=== PATIENT | female | born 1945 | race Caucasian/White ===

== ENCOUNTER 2017-10-06 19:30 | Inpatient (IN) | payer MEDICARE, BC ==
[2017-10-06] MEDS ORDERED: Nitroglycerin 50 MG/250 ML BOT 250 ML ONE (19:47)
[2017-10-06] MEDS ORDERED: Furosemide 40 MG/4 ML VIAL ONE (19:48)
[2017-10-06 20:44] LABS: #Eosinphils 0.1 thou/uL (0.0-0.7); #Lymphocytes 2.3 thou/uL (1.20-3.40); %Basophils 0.1 % (0.0-1.0); %Eosinophils 0.5 % (0.0-10.0); %Lymphocytes 16.1 % (21.0-51.0); %Neutrophils 76.3 % (42.0-75.0); Hemoglobin 11.3 g/dL (12.0-16.0); Mean Corpuscular HGB CONC 33.3 g/dL (32.0-36.0); Mean Corpuscular Hemoglobin 31.7 pg (27.0-31.0); Mean Corpuscular Volume 95.1 fL (78.0-98.0); Platelet Count 241 thou/uL (130-400); RBC Distribution Width 13.3 % (11.5-14.5); Red Blood Cell (RBC) Count 3.57 mill/uL (4.20-5.40); White Blood Cell (WBC) Count 14.4 thou/uL (4.8-10.8)
[2017-10-06 20:56] LABS: ALT (SGPT) Less than 7 U/L (8-55); AST (SGOT) 15 U/L (5-34); Albumin 3.5 g/dL (3.4-4.8); Alkaline Phosphatase 79 U/L (40-150); Anion Gap 15 mmol/L (10-20); BUN (Urea Nitrogen) 17 mg/dL (9.8-20.1); Bilirubin, Total 0.7 mg/dL (0.2-1.2); CK (CPK) 37 U/L (29-168); Calc. Creatinine Clearance 0 mL/min (70-130); Calcium 8.6 mg/dL (7.8-10.44); Carbon Dioxide 23 mmol/L (23-31); Chloride 103 mmol/L (98-107); Estimated GFR-MDRD 42; Globulin 3.4 g/dL (2.4-3.5); Glucose 184 mg/dL (83-110); Lipase 13 U/L (8-78); Potassium 3.8 mmol/L (3.5-5.1); Protein, Total 6.9 g/dL (6.0-8.3); Sodium 137 mmol/L (136-145)
[2017-10-06 20:59] LABS: CKMB 0.7 ng/mL (0-6.6)
[2017-10-06 21:40] LABS: Bilirubin Negative (Negative); Blood, Urine Trace (Negative); Clarity CLEAR (Clear); Glucose, Urine (Dipstick) Negative (Negative); Leukocyte Trace (Negative); Nitrite Negative (Negative); Protein, Urine (Dipstick) 100 mg/dL (Neg-Trace); Specific Gravity, Urine 1.009 (1.002-1.036)
--- NOTE | 2017-10-06 21:40 | RAD ---
RADIOGRAPH CHEST 1 VIEW: Date: 10/06/17 Time: 8:59 p.m. HISTORY: 72-year-old female with congestive heart failure. COMPARISON: 10/05/17 FINDINGS: Cardiomegaly, bilateral heterogeneously distributed streaky pulmonary densities in the bilateral mid and lower lung zones, and left upper lobe, associated with patchy bilateral mild interstitial densiti es. No pneumothorax. No interval change. IMPRESSION: 1. Cardiomegaly. 2. Bilateral pulmonary densities which could be pulmonary edema, which would suggest congestive heart failure. Alternatively, this could represent bilateral infectious pneumonitis. 3. No interval change since yesterday. OSCAR [] POS: KALIN
[2017-10-06 21:43] LABS: Bacteria/HPF None Seen HPF (None Seen); Hyaline Casts/LPF 0-3 HYALINE CAST LPF (0-3 Hyaline); Pathc Cast-AUWi Flag 0.14 (0-2.49); Squamous Epithelial 0-3 HPF (0-3)
[2017-10-07] MEDS ORDERED: Ondansetron ODT 4 MG TAB SL PRN (00:15)
[2017-10-07] MEDS ORDERED: Acetaminophen 325 MG TAB PO PRN ×2 (00:15→04:14)
[2017-10-07] MEDS ORDERED: Ondansetron HCl/PF 4 MG/2 ML Vial IVP PRN (00:15)
[2017-10-07] MEDS ORDERED: Bisacodyl 5 MG TAB PO PRN (04:14)
[2017-10-07] MEDS ORDERED: Dextrose 5% in Water 1,000 ML IV PRN (04:16)
[2017-10-07] MEDS ORDERED: Dextrose 50% Abboject 50 ML SYRINGE SLOW IVP PRN (04:16)
[2017-10-07] MEDS ORDERED: PROVENTIL INHALER 6.7 G (200 INHALATIONS) INH PRN (04:16)
[2017-10-07] MEDS ORDERED: HumaLOG 300 UNITS/3 ML VIAL SC PRN (04:16)
--- NOTE | 2017-10-07 04:52 | HP ---
PRIMARE CARE PROVIDER: Bradley Beal M.D. CHIEF COMPLAINT: Shortness of breath. HISTORY OF PRESENT ILLNESS: Ms. Jack is a pleasant 72-year-old lady who was seen at [facility] on 10/07/2017. She is followed by Cardiology Service, Dr. Mckinney, as outpatient. She reports that she has been on furosemide 20 mg daily for several years. She denies ever having been diagnosed with congestive hea rt failure. She reports chronic shortness of breath that worsened over the last 4 or 5 days. She reports shortne ss of breath with exertion. She denies any orthopnea or paroxysmal nocturnal dyspnea, reports that s hortness of breath is the same with every body position. She went to [facility] 2 days ago. There, she was told that she had "mild congestiv e heart failure" and advised to double her furosemide dose. She tried that, but continued to have sh ortness of breath. She therefore presented to the emergency room seeking help. She also reports that of late when she is short of breath. She feels chest tightness, but is unable to describe it further. REVIEW OF STYTEMS: All other systems reviewed and found to be negative. PAST MEDICAL HISTORY: Hypertension, dyslipidemia, carotid artery stenosis, coronary artery disease w ith evidence of 3-vessel disease, tobacco abuse and diabetes mellitus type 2. PAST SURGICAL HISTORY: Tubal ligation, hysterectomy, carotid endarterectomy and cardiac catheterizat ion. SOCIAL HISTORY: The patient denies tobacco use, alcohol use or recreational drug use. FAMILY HISTORY: Heart disease in her mother. CODE STATUS: I discussed her code status. She is DNR. ALLERGIES: No known drug allergies. CURRENT MEDICATIONS: Quinapril 40 mg daily, furosemide 20 mg 2 times a day, Singulair 5 mg at bedtim e, gabapentin 300 mg 2 times a day, amlodipine 10 mg daily, Januvia 50 mg daily, Crestor 20 mg at bed time, Ranexa 500 mg tablets, 2 tablets daily, aspirin 162 mg daily. PHYSICAL EXAMINATION: GENERAL: Ms. Jack is awake and alert, not in acute distress. VITAL SIGNS: Blood pressure is 119/74, pulse is 76. She is breathing at rate of 18 and saturating 9 7% on 2 L of oxygen. She is afebrile. EYES: No scleral icterus. No conjunctival pallor. ENT: Moist mucosal membranes, no oropharyngeal erythema or exudates. NECK: Jugular venous distention is present. Neck is supple, nontender, trachea is midline. RESPIRATORY: Accessory muscles of breathing are not active. Chest wall movements are symmetric bila terally. LUNGS: Reveals bibasilar crackles. ABDOMEN: Soft, nontender, bowel sounds heard, no hepatomegaly, no splenomegaly. CARDIOVASCULAR: S1 and S2 are heard, regular. Peripheral pulses palpable. No carotid bruit, no per icardial rub. NEUROLOGIC: Cranial nerves II-XII intact. Deep tendon reflexes are 2+. MUSCULOSKELETAL: Power is 5/5 in all 4 extremities. SKIN: No rashes or subcutaneous nodules. She has bilateral ankle edema. LYMPHATIC: No cervical lymphadenopathy. PSYCHIATRIC: Normal mood, normal affect, patient is oriented to person, place, and time. LABORATORY DATA: 's labs and investigations were reviewed. I reviewed her electrocardiogr am, which shows normal sinus rhythm, no ST changes to suggest an acute coronary syndrome. I also rev iewed her chest x-ray, which shows interstitial edema. She has leukocytosis with 14,400 white cells, of which 76% are neutrophils, normocytic anemia with hemoglobin 11.3, normal platelet count, normal electrolytes, elevated creatinine of 1.25, last known creatinine 1.08 on 10/05/2017, although she had elevated creatinine in the past as well, unremarkable liver profile, normal troponin I and BNP mildl y elevated at 116.6. Urinalysis is positive for protein, blood and trace leukocyte esterase. ASSESSMENT AND PLAN: Ms. Jack is a pleasant 72-year-old lady who was seen at [facility] on 10/07/2017. Her problem list includes: 1. Shortness of breath: Etiology unclear, most likely secondary to congestive heart failure exacerb ation. 2. Congestive heart failure exacerbation: Clinically, she presents as being in congestive heart cris lure exacerbation, although the only mildly elevated BNP as well as a history of lack of orthopnea or paroxysmal nocturnal dyspnea would suggest that alternative possibilities be entertained as well. F or now, patient will be admitted to the hospital and treated with intravenous diuretics. The interst itial edema on chest x-ray could also be pulmonary infiltrates. However, she does not have any fever s. She does have leukocytosis, however. 3. Diabetes mellitus type 2: Start Accu-Cheks, insulin sliding scale. 4. Dyslipidemia: Continue statin. 5. Hypertension: Resume home medications, monitor vital signs, titrate antihypertensives as needed. 6. Chronic kidney disease. Monitor creatinine and electrolytes. Many thanks for allowing me to participate in your patient's care. Please feel free to contact me wi th any questions or concerns. LEVEL OF RISK: High. LEVEL OF COMPLEXITY: High.
[2017-10-07] MEDS: Furosemide 20 MG/2 ML VIAL SLOW IVP SCH ×2 (05:20→17:04)
[2017-10-07] MEDS ORDERED: Alogliptin 6.25 MG TAB PO SCH (09:00)
[2017-10-07] MEDS ORDERED: Mometasone/Formoterol 120 PUFF INHALER INH PRN (09:00)
[2017-10-07] MEDS ORDERED: Aspirin 81 mg Enteric Coated Tablet PO SCH (09:00)
[2017-10-07] MEDS ORDERED: Vit A,C & E/Lutein/Minerals Tablet PO SCH (09:00)
[2017-10-07] MEDS ORDERED: Rosuvastatin 20 MG TAB PO SCH ×2 (09:00→21:00)
[2017-10-07] MEDS ORDERED: Amlodipine 10 MG TAB PO SCH ×2 (09:00→21:00)
[2017-10-07] MEDS ORDERED: Iopamidol 370 76% 100 ML VIAL ONE (09:52)
[2017-10-07] MEDS: Gabapentin 300 MG CAP PO SCH ×2 (10:21→21:01)
[2017-10-07] MEDS: Heparin 5,000 UNITS/ML VIAL SC SCH ×2 (10:49→16:30)
[2017-10-07] MEDS ORDERED: Communication Order-Pharmacy FS SCH ×2 (11:15→17:35)
--- NOTE | 2017-10-07 12:07 | CON ---
DATE OF CONSULTATION: 10/07/2017 INDICATION FOR CONSULTATION: This is a 72-year-old female with known coronary artery disease, hypert ension, diabetes, hypercholesterolemia who underwent cardiac catheterization in [address] Mckinney cathed her in 2013, at which time she was found to have a 60% proximal left anterior descending terrance ry stenosis. She also had 100% right coronary stenosis. The distal right coronary was seen filling by the left anterior descending artery. The left circumflex also has some plaque formation, but no f low limiting or critical stenosis was noted. It was opted to continue medical treatment. She has be en doing very well apparently, has been monitoring her blood pressure and heart rate as well as her d iabetes as well as her cholesterol and has been doing very well. She recently saw him in the office a few months ago and has been doing very well until the last couple of days where she noted she had i ncreasing shortness of breath, dyspnea on exertion, chest tightness with minimal exertion and lower e xtremity edema, more so on the left side than the right side and she presented to the facility for ev aluation and eventually was sent here for further evaluation and treatment and was felt to have some mild congestive heart failure symptoms. However, the BNP is not significantly elevated. She continu es to have some dyspnea when she does minimal exertion. After reviewing the films and discussion with the patient, I feel that most likely she will need to u ndergo a cardiac catheterization for reevaluation of the coronary artery disease. She may now at thi s time have had further progression of her stenosis of the left anterior descending artery causing un stable angina type symptoms. Her EKG is unchanged from 2016. There is no indication of ischemia on the EKG. There is no evidence of myocardial infarction. She has normal cardiac enzymes. Her BNP al so was not significantly elevated, the level was 116.6, not indicative of significant congestive hear t failure. It is of note that her WBC was slightly elevated 14.4 and the chest x-ray indicated ther e was a possibility of either mild congestive heart failure symptoms or the possibility of possible i nfiltrates due to suggestion of possible bilaterally infectious pneumonitis. She has not had any sig nificant coughing. She is afebrile and appears to be comfortable at this time. I have discussed wit h her the indication for the cardiac catheterization as well as the procedure and the risks to includ e bleeding, infection, possibly a myocardial infarction, cerebrovascular accident, renal insufficienc y, allergic contrast reaction and even the possibility of . She understands and agrees to proce ed. We will plan for cardiac catheterization later today as the patient has already had breakfast. As far as her past medical history, social history, review of systems, medications, allergies and phy sical examination, these will be dictated by the nurse practitioner. From my examination, she does have bilateral carotid bruits. She is status post a right carotid enda rterectomy and has a well healed surgical incision. This was performed several years ago. This has remained stable, but she does have bilateral carotid bruits. She has very soft systolic murmur of th e aortic area. Her chest appears to be clear to auscultation without any rales, rhonchi or wheezing today. Extremities show only minimal lower extremity edema involving the left lower extremity. Peda l pulses are present. Cardiovascular exam also revealed a regular rate and rhythm without any other significant murmurs. There were no heaves. Abdominal exam is unremarkable except for some obesity a nd neurologically the patient was fully intact. IMPRESSION: Unstable angina in an elderly female with multiple risk factors for coronary artery dise ase with known coronary disease which most likely has now developed progression of her coronary arter y disease which may now require intervention or possible bypass surgery.
--- NOTE | 2017-10-07 12:22 | CON ---
DATE OF CONSULTATION: 10/07/2017 The patient is a 72-year-old female, pleasant lady presented to [facility] yesterday with shortn ess of breath that had progressed over the last 4-5 days, also some lower extremity swelling, reporte d was worse to the left leg. The patient reports that the shortness of breath is worse with ambulati on and has gotten worse over the last few days. Also reports having this type squeezing chest pain w henever she does get short of breath and it does resolve whenever she does rest. The shortness of br eath has gotten worse even with sitting. She does report a mild cough, but that is not anything new for her as she is a 50 year smoker. She denies any productive cough, fever or chills. The patient d enies any nausea, vomiting with this chest pain, heaviness, does not radiate anywhere. Denies any pa lpitations. All other review of systems are negative, unless as stated in the HPI. PAST MEDICAL HISTORY: Hypertension, dyslipidemia, carotid artery stenosis, coronary artery disease w ith evidence of 3-vessel disease, 50 year smoker, 1 pack a day, although she reports she stopped smok ing about 10 years ago and a history of diabetes. PAST SURGICAL HISTORY: History of tubal ligation, hysterectomy, carotid endarterectomy and a cardiac catheterization. SOCIAL HISTORY: Stopped smoking 10 years ago and denies any alcohol or recreational drug use. ALLERGIES: The patient has no known drug allergies. CURRENT MEDICATIONS: Quinapril 40, furosemide 20 mg 2 times a day, Singulair 5 mg at bedtime, gabape ntin 300 two times a day, amlodipine 10 mg daily, Januvia 50 mg daily, Crestor 20 mg at bedtime, Poncho xa 500 mg 2 times a day and aspirin 162 daily. PHYSICAL EXAMINATION: GENERAL: The patient is awake and alert, in no distress. VITAL SIGNS: Her blood pressure is 159/70, heart rate is 75, respirations 18 even and unlabored. Sh e satting 95% on 2 liters nasal cannula, temperature is 97.9. HEENT: Within normal limits. She is atraumatic. NECK: She does have +2 carotids with mild bilateral bruits. CHEST: Clear to auscultation. She has no rales, rhonchi or wheezing. HEART: Heart rate is regular with a mild aortic area murmur. Peripheral pulses are palpable. She h as no edema at this time. Cranial nerves are intact. MUSCULOSKELETAL: Moves all extremities. SKIN: She has no rashes. There is no JVD. Trachea is midline. RESPIRATORY: No use of accessory muscles. She has a symmetric chest wall movement. LABORATORY VALUES: WBC 14.4, RBCs 3.57. Hemoglobin is 11.3, hematocrit 34.0. Sodium is 137, potass ium 3.8, chloride 103, carbon dioxide is 23, anion gap is 15, BUN 17, creatinine 1.25. Estimated GFR is 42, glucose is 184. Her BNP is 116.6 and have her albumin ratio is 1.0. EKG shows no ST changes and no ischemia. Chest x-ray. Cardiac enzymes are normal. ASSESSMENT AND PLAN: Unstable angina, known coronary artery disease. Will go for catheterization to day, later this afternoon with possible intervention and possible bypass.
[2017-10-07] MEDS ORDERED: Lidocaine 1% (PF) 30 ML VIAL ONE (13:36)
[2017-10-07] MEDS ORDERED: Verapamil 5 MG/2 ML VIAL ONE (14:01)
[2017-10-07] MEDS ORDERED: Heparin 10,000 UNITS/1 ML VIAL ONE (14:01)
[2017-10-07] MEDS ORDERED: Nitroglycerin 100MG/250ML BOT 250 ML ONE (14:01)
[2017-10-07] MEDS ORDERED: Midazolam HCl 2 mg/2 ml Vial ONE (14:23)
[2017-10-07] MEDS ORDERED: Lidocaine 2% PF 100 mg/5 ml Syringe ONE (14:27)
[2017-10-07] MEDS ORDERED: Aminocaproic Acid 5 GM/20 ML VIAL ONE (14:27)
[2017-10-07] MEDS ORDERED: Heparin 30,000 units/30 ml VIAL ONE (14:27)
[2017-10-07] MEDS ORDERED: Mannitol 12.5 GM/50 ML ONE (14:27)
[2017-10-07] MEDS ORDERED: Norepinephrine 4 MG/4 ML VIAL ONE (14:27)
[2017-10-07] MEDS ORDERED: Papaverine 60 MG/2 ML VIAL ONE (14:27)
[2017-10-07] MEDS ORDERED: Protamine Sulfate 250 MG/25 ML VIAL ONE (14:27)
[2017-10-07] MEDS ORDERED: Magnesium 5 GM/10 ML VIAL ONE (14:27)
[2017-10-07] MEDS ORDERED: Calcium Chloride 1 GM/10 ML Abboject SYRINGE ONE (14:27)
[2017-10-07] MEDS ORDERED: Heparin 5,000 UNITS/ML VIAL ONE (14:27)
[2017-10-07] MEDS ORDERED: Cardioplegic Soln 1,000 ML BAG ONE (14:27)
[2017-10-07] MEDS ORDERED: Potassium Chlo 10 mEq/5 ml Syr ONE (14:27)
[2017-10-07] MEDS ORDERED: Sodium Bicarb 50 MEQ/50 ML VIAL ONE (14:27)
[2017-10-07] MEDS ORDERED: Albumin 25% 25 GM/100 ML BOT ONE (14:27)
[2017-10-07] MEDS ORDERED: Acetaminophen/Codeine 30-300mg Tablet PO PRN ×2 (15:55)
[2017-10-07] MEDS ORDERED: traMADol HCl 50 MG TAB PO PRN (15:55)
[2017-10-07] MEDS ORDERED: Nitroglycerin 0.4 MG TAB (25 Tab Bottle) SL PRN (15:55)
[2017-10-07] MEDS ORDERED: Sodium Chloride 0.9% 200 ML IV SCH (15:55)
[2017-10-07] MEDS ORDERED: cloNIDine 0.1 MG TAB PO PRN (16:47)
--- NOTE | 2017-10-07 21:56 | ULT ---
ULTRASOUND DOPPLER DUPLEX CAROTID: 10/07/17 HISTORY: 72-year-old female with atherosclerotic disease of the bilateral carotid arteries. Status post caroti d endarterectomy. TECHNIQUE: Bailey scale, color flow, and spectral analysis, of major arteries of the neck. FINDINGS: There is intimal thickening of the bilateral common carotid arteries. There is mild focal plaque at t he origin of the right internal carotid artery. There is multifocal moderate calcified plaque in the distal left common carotid artery, proximal left internal carotid artery, and proximal left external carotid artery. Highest peak systolic velocities in the internal carotid arteries are 85 cm/s on the right and 190 cm /s on the left. The left internal carotid end diastolic velocity is 30 cm/s. The left external caroti d artery has peak systolic velocity of 280 cm/s. The ICA/CCA ratios are 0.9 on the right and 1.9 on t he left. Vertebral artery flow is antegrade bilaterally. IMPRESSION: 1. Moderate atherosclerotic disease of left common carotid, internal carotid and external caroti d arteries. 2. Estimated moderate, 50-69% stenosis of the proximal left internal carotid artery. 3. High grade stenosis of the proximal left external carotid artery. POS: KALIN
--- NOTE | 2017-10-08 01:09 | CON ---
DATE OF CONSULTATION: 10/07/2017 REQUESTING PHYSICIAN: Mini Peterson M.D. PRIMARY CARE PHYSICIAN: Bradley Beal M.D. CHIEF COMPLAINT: Dyspnea on exertion. HISTORY OF PRESENT ILLNESS: The patient is a 72-year-old diabetic woman with known coronary artery d isease, having undergone cardiac catheterization about 4 years ago. At that time, she had 3-vessel c oronary disease and good LV function and her disease appeared to be modest enough it was opted to pur holly medical management. She has done very well up until the last few days when fairly abruptly she b thad having dyspnea on minimal exertion. She has noticed some swelling in her lower extremities, but has not had any orthopnea or PND. She says that she gets short of breath simply walking across the room and after she starts getting short of breath, she will start developing some chest heaviness. S he presented to the Emergency Room where she had an EKG that was fairly similar to old EKGs. Her tro ponin was 0.010. Her BNP was minimally elevated at 116.6. She underwent cardiac catheterization topauly kearns, which demonstrated progression of disease. PAST MEDICAL HISTORY: Significant for hypertension, diabetes, hyperlipidemia, cerebrovascular diseas e having undergone a right carotid endarterectomy for an asymptomatic carotid stenosis in 2014. She also has mild renal insufficiency with baseline creatinines around the 1.4 range. SOCIAL HISTORY: She is a former smoker. FAMILY HISTORY: Significant for father who at age 72 having heart disease. Her mother had hear t disease, hypertension, and cancer, but lived to age 85. REVIEW OF SYSTEMS: Positive for a deliberate 50-pound weight loss over about the last year or year a nd a half, positive for her dependent edema and recent dyspnea on exertion, negative for orthopnea or PND, negative for any transient eye, speech, facial or extremity symptoms to suggest TIAs, negative for any claudication, negative for any bleeding disorders. PHYSICAL EXAMINATION: GENERAL: She is in no distress. VITAL SIGNS: Height is 5 foot 3. Weight 168 pounds. HEENT: She has no xanthelasma. NECK: No JVD. She has well healed surgical scar paralleling the right sternocleidomastoid consisten t with a carotid endarterectomy. She has bilateral carotid bruits. LUNGS: Her chest is clear to auscultation. CARDIOVASCULAR: She has a regular rate and rhythm. Soft systolic murmur heard over the upper precor dium. She has no gallop. ABDOMEN: Soft and nontender with a well healed surgical scar in the low vertical midline. She has a pressure bandage on her right radial pulse. Her left radial pulse is easily palpable. Both dorsali s pedis pulses are palpable although the right is probably a little stronger than the left. She has no overt edema today. She has no clubbing, cyanosis. NEUROLOGIC: Grossly nonfocal. There have been no significant changes to her home medical regimen of Januvia, Norvasc, quinapril, Ranexa, Crestor, aspirin, Lasix, and p.r.n. Symbicort and Ventolin and scheduled Neurontin. LABORATORY DATA: Showed white count 14.4, hemoglobin 11.3, platelets 241,000. Normal electrolytes. Glucose 184, BUN 17, creatinine 1.25, and estimated GFR of 42. LFTs were normal. Calcium 8.6, prot ein 6.9, albumin 3.5, troponin 0.010. BNP of 116.6. Cardiac catheterization shows codominant system with a small right coronary system with a subtotal ostial stenosis. She has very, very short left m ain, if any at all with a long proximal lesion in the LAD, probably is on the order of 70, perhaps ev en 80%. There is a relatively high diagonal that appears to be free of disease, although some views are somewhat suggestive of ostial disease. There is what probably represents a very high diagonal ru nning in the ramus position and a tiny OM1 followed by an OM2 with a long 70%-80% lesion in it. Ther e is probably some minimal luminal irregularity to the ostium of the circumflex. There does not appe ar to be any disease affecting the terminal circumflex arborization. LVEF is probably around 60% or 70%. Aortic pressures were 184/11 with an EDP of 20, 195/16 with an EDP of 26 and 194/20 with an EDP of 28. Aortic pressure was 184/68 with a mean of 112. IMPRESSION AND RECOMMENDATIONS: Three-vessel coronary disease including proximal disease in a diabet ic who has become dyspneic on exertion with minimal activity. She has asymptomatic carotid disease a nd in reviewing her office records and checking with her guide excursion's office, I am not able to find any evidence that she has had a carotid ultrasound done since about 2014. At that time, her right s alem had markedly progressed over a brief period of follow up, but her left carotid remained stable wi th an internal to common ratio in the 1.5-1.6 range with absolute internal carotid velocities of 159 in 2014 and 134 in 2013. She remains asymptomatic with respect to her carotid disease and if it can be arranged, I would like to check a carotid ultrasound this evening before proceeding with coronary surgery in the morning.
[2017-10-08] MEDS ORDERED: Heparin 10,000 UNITS/1 ML VIAL 30,000 UNITS in Sodium Chloride 0.9% 1,000 ML FS SCH (05:00)
[2017-10-08] MEDS: Furosemide 20 MG/2 ML VIAL SLOW IVP SCH (05:06)
[2017-10-08 05:41] LABS: #Eosinphils 0.2 thou/uL (0.0-0.7); #Lymphocytes 2.2 thou/uL (1.20-3.40); #Monocytes 0.8 thou/uL (0.11-0.59); #Neutrophils 7.1 thou/uL (1.40-6.50); %Basophils 0.3 % (0.0-1.0); %Eosinophils 1.8 % (0.0-10.0); %Lymphocytes 21.6 % (21.0-51.0); %Monocytes 7.8 % (0.0-10.0); %Neutrophils 68.4 % (42.0-75.0); Mean Corpuscular HGB CONC 32.8 g/dL (32.0-36.0); Mean Corpuscular Hemoglobin 31.3 pg (27.0-31.0); Mean Corpuscular Volume 95.4 fL (78.0-98.0); Mean Platelet Volume 6.6 fL (7.4-10.4); Platelet Count 255 thou/uL (130-400); RBC Distribution Width 13.4 % (11.5-14.5); Red Blood Cell (RBC) Count 3.51 mill/uL (4.20-5.40); White Blood Cell (WBC) Count 10.3 thou/uL (4.8-10.8)
[2017-10-08 05:55] LABS: Anion Gap 11 mmol/L (10-20); BUN (Urea Nitrogen) 16 mg/dL (9.8-20.1); Calc. Creatinine Clearance 56 mL/min (70-130); Calcium 8.5 mg/dL (7.8-10.44); Carbon Dioxide 29 mmol/L (23-31); Chloride 101 mmol/L (98-107); Estimated GFR-MDRD 49; Glucose 159 mg/dL (83-110); Potassium 3.1 mmol/L (3.5-5.1); Sodium 138 mmol/L (136-145)
[2017-10-08] MEDS ORDERED: CEFAZOLIN/Water 2 GM/20 ML SYRINGE ONE (06:17)
[2017-10-08] MEDS ORDERED: Albumin 5% 0 ML ONE (06:32)
[2017-10-08] MEDS ORDERED: Fentanyl 250 MCG/5 ML VIAL ONE ×2 (06:53→06:54)
[2017-10-08] MEDS ORDERED: Nitroglycerin 50 MG/250 ML BOT 250 ML IVPB PRN (07:13)
[2017-10-08] MEDS ORDERED: Ondansetron HCl/PF 4 MG/2 ML Vial IVP PRN (07:13)
[2017-10-08] MEDS ORDERED: Bisacodyl 10 MG SUPP PR PRN (07:13)
[2017-10-08] MEDS ORDERED: Guaifenesin DM 100-10/5 ML UDCUP PO PRN (07:13)
[2017-10-08] MEDS ORDERED: Mag-Al 1200 mg/1200 mg/30 ML UDCUP PO PRN (07:13)
[2017-10-08] MEDS ORDERED: Fentanyl 100 MCG/2 ML VIAL SLOW IVP PRN ×2 (07:13)
[2017-10-08] MEDS ORDERED: Acetaminophen 325 MG TAB PO PRN (07:13)
[2017-10-08] MEDS ORDERED: Promethazine HCl 25 MG/ML VIAL IM PRN (07:13)
[2017-10-08] MEDS ORDERED: Hetastarch 6% 500 ML 500 ML IVPB PRN (07:13)
[2017-10-08] MEDS ORDERED: Bisacodyl 5 MG TAB PO PRN (07:13)
[2017-10-08] MEDS ORDERED: Norepinephrine 8 MG/0.9% NS 250 ML IVPB PRN (07:13)
[2017-10-08] MEDS ORDERED: Post-Op Insulin Drip Protocol IVPB ONE (07:13)
[2017-10-08] MEDS ORDERED: hydrALAZINE 20 MG/ML VIAL SLOW IVP PRN (07:13)
[2017-10-08] MEDS ORDERED: Insulin Regular 300 UNITS/3 ML VIAL ONE (08:08)
[2017-10-08] MEDS ORDERED: Dextrose 5% in Water 1,000 ML IV PRN (08:49)
[2017-10-08] MEDS ORDERED: Insulin Regular 300 UNITS/3 ML VIAL SC PRN (08:49)
[2017-10-08] MEDS ORDERED: Dextrose 50% Abboject 50 ML SYRINGE SLOW IVP PRN (08:49)
--- NOTE | 2017-10-08 11:20 | PDOC.PN ---
- Subjective Encounter Start Date: 10/08/17 Encounter Start Time: 09:15 -: old records requested/rev - Objective Resuscitation Status: Resuscitation Status DNR:Do Not Resuscitate MAR Reviewed: Yes Vital Signs & Weight: Vital Signs (12 hours) Temp Pulse Resp BP BP Pulse Ox 10/08/17 04:00 98.6 F 61 20 114/66 93 L 10/08/17 01:26 98.1 F 58 L 20 134/59 L 94 L Weight Admit Weight 168 lb 1.6 oz Weight 171 lb 8 oz Result Diagrams: 10/08/17 04:49 10/08/17 04:49 Additional Labs: Accuchecks 10/08/17 10/08/17 10/08/17 10:03 08:08 05:28 POC Glucose 204 H 193 H 192 H 10/07/17 10/07/17 20:59 11:30 POC Glucose 250 H 228 H Radiology Reviewed by me: Yes (carotid US) EKG Reviewed by me: Yes (nsr) Phys Exam - Physical Examination Constitutional: NAD HEENT: PERRLA, moist MMs, sclera anicteric Neck: no JVD, supple Respiratory: no wheezing, no rales, no rhonchi Cardiovascular: RRR, no significant murmur, no rub Gastrointestinal: soft, non-tender, no distention, positive bowel sounds Musculoskeletal: no edema, pulses present Neurological: non-focal, normal sensation, moves all 4 limbs Psychiatric: normal affect, A&O x 3 Skin: no rash, normal turgor Dx/Plan (1) Hypokalemia Code(s): E87.6 - HYPOKALEMIA Status: Acute (2) Unstable angina Status: Acute (3) 3-vessel coronary artery disease Status: Chronic (4) Anemia, normocytic normochromic Code(s): D64.9 - ANEMIA, UNSPECIFIED Status: Chronic (5) CKD (chronic kidney disease) stage 3, GFR 30-59 ml/min Status: Chronic (6) COPD (chronic obstructive pulmonary disease) Status: Chronic (7) Carotid stenosis, left Code(s): I65.22 - OCCLUSION AND STENOSIS OF LEFT CAROTID ARTERY Status: Chronic (8) DM type 2 (diabetes mellitus, type 2) Status: Chronic (9) HTN (hypertension) Code(s): I10 - ESSENTIAL (PRIMARY) HYPERTENSION Status: Chronic (10) Hyperlipidemia Code(s): E78.5 - HYPERLIPIDEMIA, UNSPECIFIED Status: Chronic (11) Obesity (BMI 30.0-34.9) Code(s): E66.9 - OBESITY, UNSPECIFIED Status: Chronic (12) PVD (peripheral vascular disease) Code(s): I73.9 - PERIPHERAL VASCULAR DISEASE, UNSPECIFIED Status: Chronic - Plan cont current plan of care * plan for CABG today * after CABG, cardiology and cardiovascular surgeon will manage pt in CCU * medication reviewed as below * symptomatic treatment * replace potassium. Review of Systems - Review of Systems Eyes: negative: Pain, Vision Change, Conjunctivae Inflammation, Eyelid Inflammation, Redness, Other ENT: negative: Ear Pain, Ear Discharge, Nose Pain, Nose Discharge, Nose Congestion, Mouth Pain, Mouth Swelling, Throat Pain, Throat Swelling, Other Respiratory: negative: Cough, Dry, Shortness of Breath, Hemoptysis, SOB with Excertion, Pleuritic Pain, Sputum, Wheezing Cardiovascular: negative: chest pain, palpitations, orthopnea, paroxysmal nocturnal dyspnea, edema, light headedness, other Gastrointestinal: negative: Nausea, Vomiting, Abdominal Pain, Diarrhea, Constipation, Melena, Hematochezia, Other Genitourinary: negative: Dysuria, Frequency, Incontinence, Hematuria, Retention , Other Musculoskeletal: negative: Neck Pain, Shoulder Pain, Arm Pain, Back Pain, Hand Pain, Leg Pain, Foot Pain, Other Skin: negative: Rash, Lesions, Esequiel, Bruising, Other - Medications/Allergies Allergies/Adverse Reactions: Allergies Allergy/AdvReac Type Severity Reaction Status Date / Time No Known Allergies Allergy Unverified 06/09/13 07:56 Medications: Current Medications Acetaminophen (Tylenol) 650 mg PO Q6H PRN PRN Reason: Headache/Fever Or Mild Pain Hydrocodone Bitart/Acetaminophen ([place] 5/325) 1 tab PO Q4H PRN PRN Reason: Moderate Pain (4-6) Hydrocodone Bitart/Acetaminophen ([place] 5/325) 2 tab PO Q4H PRN PRN Reason: Severe Pain (7-10) Al Hydroxide/Mg Hydroxide (Maalox) 30 ml PO Q4H PRN PRN Reason: Indigestion Albumin Human (Albumin 5%) 12.5 gm IVPB Q6H PRN PRN Reason: To Maintain SBP> 90 mmHG Stop: 10/09/17 07:14 Albumin Human (Albumin 5%) 25 gm IVPB Q6H PRN PRN Reason: To Maintain SBP > 90 mmHG Stop: 10/09/17 07:14 Albuterol/Ipratropium (Duoneb) 3 ml NEB [id number] PRN PRN Reason: SHORTNESS OF BREATH Bisacodyl (Dulcolax) 10 mg PO Q12H PRN PRN Reason: Constipation Bisacodyl (Dulcolax) 10 mg CA Q12H PRN PRN Reason: Constipation Dextrose/Water (Dextrose 50%) 25 gm SLOW IVP PRN PRN PRN Reason: PER HYPOGLYCEMIC PROTOCOL Famotidine (Pepcid) 20 mg SLOW IVP Q12HR YONATHAN Fentanyl (Sublimaze) 25 mcg SLOW IVP Q2H PRN PRN Reason: Moderate Pain (4-6) Stop: 10/10/17 07:13 Fentanyl (Sublimaze) 50 mcg SLOW IVP Q2H PRN PRN Reason: Severe Pain (7-10) Stop: 10/10/17 07:13 Glucagon (Glucagon) 1 mg SC PRN PRN PRN Reason: PER HYPOGLYCEMIC PROTOCOL Guaifenesin/Dextromethorphan (Robitussin Dm) 15 ml PO Q4H PRN PRN Reason: Cough Hydralazine HCl (Apresoline) 10 mg SLOW IVP Q6H PRN PRN Reason: To Maintain SBP< 140mmHG Hetastarch/Sodium Chloride (Hespan) 500 mls @ 0 mls/hr IVPB PRN PRN; As Directed PRN Reason: To Maintain SBP > 90mmHg Stop: 10/09/17 07:13 Norepinephrine Bitartrate (Levophed) 250 mls @ 0 mls/hr IVPB PRN PRN; Protocol ; Titrate PRN Reason: To maintain SBP > 90 mmHG Nicardipine HCl 25 mg/ Sodium (Chloride) 260 mls @ 0 mls/hr IVPB INF PRN; Protocol; Titrate PRN Reason: To Maintain SBP< 140mmHG Nitroglycerin/Dextrose (Nitroglycerin 50 Mg/250 Ml Bot) 250 mls @ 0 mls/hr IVPB PRN PRN; Protocol; Titrate PRN Reason: To Maintain SBP< 140mmHG Sodium Chloride (Normal Saline 0.9%) 1,000 mls @ 75 mls/hr IV .[id number] YONATHAN Insulin Human Regular 100 (units/ Sodium Chloride) 101 mls @ 0 mls/hr IVPB INF YONATHAN; As Directed PRN Reason: Protocol Dextrose/Water (D5w) 1,000 mls @ 0 mls/hr IV INF PRN; As Directed PRN Reason: PRN HYPOGLYCEMIC PROTOCOL Insulin Glargine (Lantus) 0 units SC ONE PRN PRN Reason: PER OPEN HEART ORDERS Stop: 10/08/17 23:00 Insulin Human Regular (Humulin R) 0 units SC Q4H PRN; Protocol PRN Reason: POST OP SLIDING SCALE Morphine Sulfate (Morphine) 2 mg SLOW IVP Q15MIN PRN PRN Reason: Severe Pain (7-10) Ondansetron HCl (Zofran) 4 mg IVP Q6H PRN PRN Reason: Nausea/Vomiting Potassium Chloride (Kcl) 20 meq IVPB PRN PRN PRN Reason: K level </= 4.0 Promethazine HCl (Phenergan) 6.25 mg IM Q4H PRN PRN Reason: Nausea/Vomiting
[2017-10-08 14:16] LABS: Actual Bicarbonate (HCO3a) 21.8 mEq/L (22-28); Base Excess (BEa) -2.1 mEq/L (-2.0 to +3.0); CO2 Tension 34.2 mmHg (35.0-45.0); O2 Tension (PaO2) 64.8 mmHg (> 70.0); pH, Arterial 7.42 (7.35-7.45)
[2017-10-08 14:17] LABS: Hemoglobin (Hb) 10.7 g/dL (12.0-16.0)
[2017-10-08 14:18] LABS: Puncture Site A-LINE
[2017-10-08] MEDS: Famotidine/PF 20 mg/2ml Vial SLOW IVP SCH ×2 (14:43→22:41)
[2017-10-08] MEDS: Sodium Chloride 0.9% 1,000 ML IV SCH (14:43)
[2017-10-08 14:44] LABS: INR-International Normal Ratio 1.4; PTT 38.9 SEC (22.9-36.1)
--- NOTE | 2017-10-08 14:45 | RAD ---
SINGLE VIEW OF THE CHEST: COMPARISON: 10/06/17. HISTORY: Status post open heart surgery. FINDINGS: A single view of the chest shows an enlarged but stable cardiomediastinal silhouette. The patient is status post sternotomy. An endotracheal tube is seen with its tip between the clavicles. A left cornejo bclavian central venous catheter is seen at the superior vena cava. A mediastinal drain and left reese st tube are present. No pneumothorax is seen. Increased interstitial markings are present. IMPRESSION: Appropriate position of lines and tubes status post sternotomy. POS: [facility]
[2017-10-08 14:58] LABS: Anion Gap 10 mmol/L (10-20); BUN (Urea Nitrogen) 15 mg/dL (9.8-20.1); Calc. Creatinine Clearance 63 mL/min (70-130); Calcium 7.3 mg/dL (7.8-10.44); Carbon Dioxide 24 mmol/L (23-31); Chloride 109 mmol/L (98-107); Estimated GFR-MDRD 56; Glucose 195 mg/dL (83-110); Potassium 3.1 mmol/L (3.5-5.1); Sodium 140 mmol/L (136-145)
[2017-10-08 15:07] LABS: Anisocytosis SLIGHT = 6-15 cells (100X) (0-5/hpf); Band 17 % (5-11); Hemoglobin 10.1 g/dL (12.0-16.0); Lymphocytes 4 % (21-51); MDiff Complete? YES; Mean Corpuscular HGB CONC 32.3 g/dL (32.0-36.0); Mean Corpuscular Volume 96.1 fL (78.0-98.0); Mean Platelet Volume 7.2 fL (7.4-10.4); Metamyelocyte 3 % (0-0); Monocytes 1 % (0-10); Myelocyte 3 % (0-0); Neutrophil 72 % (42-75); PLT Morphology Comment Appears Adequate; Platelet Count 153 thou/uL (130-400); Polychromasia MODERATE = 3-4 cells (100X) (0-2/hpf); RBC Distribution Width 13.1 % (11.5-14.5); Red Blood Cell (RBC) Count 3.26 mill/uL (4.20-5.40); White Blood Cell (WBC) Count 19.4 thou/uL (4.8-10.8)
[2017-10-08] MEDS: Potassium Chloride 20 MEQ/100 ML PREMIX BAG IVPB PRN ×2 (15:27→22:42)
[2017-10-08] MEDS ORDERED: Cardioplegic Soln 1,000 ML BAG ONE (15:49)
[2017-10-08] MEDS ORDERED: Lidocaine 1% PF 5 ML VIAL ONE (15:49)
[2017-10-08] MEDS ORDERED: PROPOFOL 200 MG/20 ML VIAL ONE (15:49)
[2017-10-08] MEDS ORDERED: Vecuronium 10 MG VIAL ONE (15:49)
[2017-10-08] MEDS ORDERED: Heparin 5,000 UNITS/ML VIAL ONE (15:49)
[2017-10-08] MEDS ORDERED: Heparin 30,000 units/30 ml VIAL ONE (15:49)
[2017-10-08] MEDS ORDERED: Norepinephrine 4 MG/4 ML VIAL ONE (15:49)
[2017-10-08] MEDS ORDERED: ePHEDrine/0.9% NaCl/PF SYRINGE 50 mg/10 ml ONE (15:49)
[2017-10-08] MEDS ORDERED: Sodium Bicarb 50 MEQ/50 ML VIAL ONE (15:49)
[2017-10-08] MEDS ORDERED: Papaverine 60 MG/2 ML VIAL ONE (15:49)
--- NOTE | 2017-10-08 17:49 | OP ---
DATE OF PROCEDURE: 10/08/2017 PROCEDURE PERFORMED: Coronary artery bypass grafting x3 with left internal mammary artery to the LAD and reverse greater saphenous vein grafts from the aorta to the second obtuse marginal and to the PD A. PREOPERATIVE DIAGNOSIS: Coronary artery disease. POSTOPERATIVE DIAGNOSIS: Coronary artery disease. SURGEON: Aron Bose MD ACCOUNTS PAYABLE BOOKKEEPER: Dr. Arcos. ANESTHESIA: General endotracheal anesthesia. INDICATIONS: The patient is a 72-year-old diabetic woman with known coronary disease. Over the last several days, she began developing rather debilitating dyspnea on exertion with simply walking acros s the room, she developed shortness of breath followed by chest heaviness or pressure and cardiac cat heterization demonstrated progression of disease including a fairly proximal LAD lesion with preserve d left ventricular systolic function. She is now taken to the operating room for coronary revascular ization. FINDINGS: The pump time 105 minutes, cross clamp time 65 minutes. Good quality ELLEN and saphenous ve in. The LAD was 1 mm vessel that was sclerotic. The second obtuse marginal was a 2 mm good quality vessel. The PDA was about a 1.5 mm sclerotic vessel. The pericardium was closed. NARRATIVE REPORT: After informed consent was obtained, the patient was taken to the operating room a nd placed in supine position on the operating table. After the induction of general anesthesia, the patient's ultrasonographic mapping of the saphenous vein in the left lower extremity was undertaken a nd then the left upper chest was prepped and draped in sterile fashion. [facility], a large bore needle was used to cannulate the left subclavian vein and a guidewire was placed through it by the Seldinger technique. A triple-lumen central line kit was used to place a left subc lavian line. The line passed easily and all three ports easily aspirated and flushed. The line was secured. The patient's torso, groins and lower extremities were prepped and draped in sterile fashio n. The greater saphenous vein was identified medially on the distal left thigh dissected proximally and distally and looped with a vessel loop for traction. It was then endoscopically harvested from t he groin to about a handbreadth below the knee and prepared for use as a graft. The harvest site inc isions were closed in layers of subcutaneous and subcuticular Vicryl. Median sternotomy was performe d. The left pleural space was entered and the left ELLEN was mobilized as a pedicle from the level of xiphoid to the level of the subclavian vein. Side branches were controlled with small Hemoclips. Th e patient was heparinized and the mammary was ligated and divided distally. There was good flow thro ugh the mammary which was then instilled intraluminally with papaverine solution. The mammary bed wa s inspected for hemostasis. The ELLEN retractor was placed at the Burgess retractor. Pericardium was op ened and marsupialized. The aorta was palpated and soft. A double concentric pursestring of #2 Ethi watson was placed in the ascending aorta just beyond the pericardial reflection and a single pursestrin g was placed in the right atrial appendage. Aortic and venous cannula were inserted and secured by t he pursestrings. The plane between the aorta and the pulmonary artery was developed. Cardiopulmonar y bypass was instituted and the patient was systemically cooled. The heart was examined. The vessel s to be bypassed were identified. A longitudinal slit was made in the pericardium anterior to the le ft phrenic nerve through which the mammary pedicle could be passed and a left-sided 36 [place] chest t ube was placed draining the left pleural space and aortic crossclamp was applied and cardioplegia was administered through an aortic root needle. When arrest has been achieved, attention was turned to the circumflex system. The OM2, the more proximal of the large posterolateral marginals was opened a fter palpating plaque in its proximal portion. It was somewhat difficult to adequately sump the terrance riotomy dry. This bleeding from the vessel was controlled by placing a 1.5 mm intracoronary shunt. Reverse greater saphenous vein was anastomosed to that obtuse marginal with running Prolene suture. Over that shunt, the shunt was removed and the suture line secured. The anastomosis was tested by fl ushing cold cardioplegic down the graft. Attention was then turned to the distal right coronary syst em. The proximal PDA was exposed and open saphenous vein was anastomosed end-to-side with running Pr olene. The LAD was then exposed distally. It was a very small vessel and at about the junction of t middle and distal thirds dive intramyocardially. The LAD was opened in the fairly proximal portio n of the distal third, but upon opening it was somewhat difficult though possible to pass a 1 mm prob e 1.5 mm shunt to stent open the vessel during anastomosis could not be passed either proximally or d istally. The Grimes blade and [place] scissors were then used to expose the vessel more proximally where it became a slightly larger caliber vessel, but dive back intramyocardially at a steep angle. The 1.5 mm shunt could be placed there. The mammary was spatulated in the heel of the anastomosis wa s constructed with 1/[address] and then the anastomosis was completed coming around the lef t side of the anastomosis and toe with 1 mm probe in the vessel distally and then completing the terrance riotomy upon releasing the bulldog, Doppler interrogation showed flow in the mammary and in the left anterior descending both proximally and distally from the anastomosis. Mammary pedicle was tacked to the epicardium and the aortic crossclamp was replaced with the partial occluding clamp and aortotomi es were made in the ascending aorta with a scalpel and punch incorporating the root needle site with one was aortotomies. The PDA graft was anastomosed in the more proximal aortotomy in the OM graft to the more distal aortotomy. The partial occluding clamp was removed and the vein grafts were deaired . The bulldogs were removed from them. The anastomoses were inspected for hemostasis and the proxim al anastomoses were marked with small Hemoclips. Posterior pericardial drain was brought out through a separate incision and secured with suture. Right atrial and right ventricular temporary epicardia l pacing wires were placed. The patient was then easily from cardiopulmonary bypass. Aort ic and venous cannulae were removed and the pursestring secured, and protamine was administered. Ble eding from the atrial cannulation site where the atrium was very thin-walled was controlled by overse wing that appendage in two layers using 4-0 Prolene and vein pledgets. When hemostasis was adequate, an anterior mediastinal drain was placed and the pericardium was closed over with running Vicryl. S ternum was reapproximated with #7 stainless steel wires. The fascia was closed over the wires with 0 Vicryl, subcutaneous tissue was irrigated and reapproximated and the skin was closed with Vicryl sub cuticular stitch. The wounds were dressed. The patient taken to the intensive care unit in stable c ondition.
[2017-10-08 20:40] LABS: CO2 Tension 37.2 mmHg (35.0-45.0); pH, Arterial 7.39 (7.35-7.45)
[2017-10-08 20:41] LABS: Actual Bicarbonate (HCO3a) 22.2 mEq/L (22-28); Base Excess (BEa) -2.3 mEq/L (-2.0 to +3.0); O2 Tension (PaO2) 53.7 mmHg (> 70.0)
[2017-10-08 20:42] LABS: Calcium, Ionized 1.1 mmol/L (1.12-1.30); Hematocrit-ABG 31.2 % (36.0-47.0); Hemoglobin (Hb) 10.2 g/dL (12.0-16.0); Puncture Site LINE
[2017-10-08 20:53] LABS: Potassium 3.3 mmol/L (3.5-5.1)
[2017-10-08 22:58] LABS: Actual Bicarbonate (HCO3a) 19.5 mEq/L (22-28); Base Excess (BEa) -4.7 mEq/L (-2.0 to +3.0); Hemoglobin (Hb) 9.7 g/dL (12.0-16.0); O2 Tension (PaO2) 61.4 mmHg (> 70.0); pH, Arterial 7.39 (7.35-7.45)
[2017-10-08 22:59] LABS: Puncture Site ALINE
[2017-10-09 04:59] LABS: #Lymphocytes 1.5 thou/uL (1.20-3.40); #Monocytes 1.2 thou/uL (0.11-0.59); #Neutrophils 15.8 thou/uL (1.40-6.50); %Basophils 0.1 % (0.0-1.0); %Eosinophils 0.1 % (0.0-10.0); %Lymphocytes 8.2 % (21.0-51.0); %Monocytes 6.6 % (0.0-10.0); Hemoglobin 10.4 g/dL (12.0-16.0); Mean Corpuscular HGB CONC 32.5 g/dL (32.0-36.0); Mean Corpuscular Hemoglobin 31.1 pg (27.0-31.0); Mean Corpuscular Volume 95.6 fL (78.0-98.0); Platelet Count 179 thou/uL (130-400); RBC Distribution Width 13.6 % (11.5-14.5); Red Blood Cell (RBC) Count 3.33 mill/uL (4.20-5.40); White Blood Cell (WBC) Count 18.5 thou/uL (4.8-10.8)
[2017-10-09 05:18] LABS: Anion Gap 13 mmol/L (10-20); BUN (Urea Nitrogen) 17 mg/dL (9.8-20.1); Calc. Creatinine Clearance 59 mL/min (70-130); Calcium 8.1 mg/dL (7.8-10.44); Carbon Dioxide 23 mmol/L (23-31); Chloride 109 mmol/L (98-107); Estimated GFR-MDRD 52; Glucose 114 mg/dL (83-110); Potassium 3.7 mmol/L (3.5-5.1); Sodium 141 mmol/L (136-145)
[2017-10-09] MEDS: Potassium Chloride 20 MEQ/100 ML PREMIX BAG IVPB PRN (05:23)
[2017-10-09] MEDS: HYDROcodone/Acetaminophen 5/325 mg Tablet PO PRN ×3 (07:35→21:07)
--- NOTE | 2017-10-09 08:06 | RAD ---
AP VIEW OF THE CHEST: INDICATION: Postop open heart. COMPARISON: Prior exam dated 10/08/17. FINDINGS: Thoracostomy tube is unchanged. The patient has been intervally extubated. Left subclavian central venous catheter is stable. No definite pneumothorax is evident. Areas of subsegmental atelectasis a re again seen within the perihilar region. Cardiomegaly persists. Midline sternotomy changes are st able. CABG clips overlying the heart shadow are stable. IMPRESSION: Interval extubation. No pneumothorax identified. POS: [facility]
[2017-10-09] MEDS ORDERED: Zolpidem Tartrate 5 MG TAB PO PRN (08:19)
[2017-10-09] MEDS ORDERED: Bisacodyl 10 MG SUPP PR PRN (08:19)
[2017-10-09] MEDS ORDERED: Artificial Tears 18 DROP/0.9 ML EA EYE PRN (08:19)
[2017-10-09] MEDS ORDERED: diphenhydrAMINE 25 MG CAP PO PRN (08:19)
[2017-10-09] MEDS ORDERED: Mag-Al 1200 mg/1200 mg/30 ML UDCUP PO PRN (08:19)
[2017-10-09] MEDS ORDERED: Nitroglycerin 0.4 MG TAB (25 Tab Bottle) SL PRN (08:19)
[2017-10-09] MEDS ORDERED: Mineral Oil ENEMA PR PRN (08:19)
[2017-10-09] MEDS ORDERED: Bisacodyl 5 MG TAB PO PRN (08:19)
[2017-10-09] MEDS ORDERED: Guaifenesin DM 100-10/5 ML UDCUP PO PRN (08:19)
--- NOTE | 2017-10-09 08:36 | PDOC.CTH ---
<Shalonda Mead - Last Filed: 10/09/17 08:34> Cardiology Progress Note - Subjective The pt seen and examined. No overnight events. No cardiac complaints. She has been up to chair for 3 hrs this AM. - Objective Vital Signs Temp Pulse Resp BP Pulse Ox 10/09/17 08:00 97.8 F 10/09/17 07:48 77 14 10/09/17 04:00 98.1 F 10/09/17 02:00 80 150/50 H 10/09/17 00:00 98.2 F 93 L 10/08/17 23:00 92 L 10/08/17 22:00 18 10/08/17 21:00 97.8 F Admit Weight 168 lb 1.6 oz Weight 179 lb 0.246 oz 10/08/17 10/09/17 10/10/17 06:59 06:59 06:59 Intake Total 2270.6 60 Output Total 1285 80 Balance 985.6 -20 - Physical Examination General/Neuro: alert & oriented x3 Neck: no JVD present Lungs: other: (Exp. wheezing) Heart: RRR Abdomen: soft Extremities: other: (No edema) - Telemetry Telemetry Rhythm: SR 80s - Labs Result Diagrams: 10/09/17 04:35 10/09/17 04:35 Troponin/CKMB CK-MB (CK-2) 0.7 ng/mL (0-6.6) 10/06/17 20:02 Troponin I 0.010 ng/mL (< 0.028) 10/06/17 20:02 - Assessment/Plan 1. 3V CAD with s/p CABG x3 on 10/08/17 with METZGER-LAD, RGSV-OM2 and PDA; on Statin; start Coreg 3.125mg BID. Will start ASA, Lovenox when the pt is stable 2. HTN - Start Coreg 3.125mg BID; cont. to monitor 3. CKD stage 3 - stable 4. Hyperlipidemia - on Statin 5. DM type 2 - managed by PCP/CV surgeon 6. Anemia - stable 7. Carotid stenosis with hx of Rt CEA in 2014 - cont. to monitor 8. Ex-smoker, quit in 2007 - JUN reviewed Review of Systems - Review of Systems Constitutional: reports: weakness EENTM: reports: no symptoms reported Respiratory: reports: no symptoms reported Cardiac (ROS): reports: no symptoms reported ABD/GI: reports: no symptoms reported : reports: no symptoms reported Musculoskeletal: reports: no symptoms reported Skin: reports: no symptoms reported <Leonardo Peterson - Last Filed: 10/18/17 17:38> Cardiology Progress Note - Objective Admit Weight 168 lb 1.6 oz Weight 183 lb 12.8 oz - Labs Result Diagrams: 10/13/17 04:37 10/14/17 06:42 Troponin/CKMB CK-MB (CK-2) 0.7 ng/mL (0-6.6) 10/06/17 20:02 Troponin I 0.010 ng/mL (< 0.028) 10/06/17 20:02 - Assessment/Plan Pt. was seen and eval. by me. I agree with the A/P by the [employer].Doing well post op. Sitting up in chair.
[2017-10-09] MEDS ORDERED: Dextrose 50% Abboject 50 ML SYRINGE SLOW IVP PRN (08:38)
[2017-10-09] MEDS ORDERED: Dextrose 5% in Water 1,000 ML IV PRN (08:38)
[2017-10-09] MEDS: guaiFENesin ER 600 MG TAB PO SCH ×2 (08:53→21:03)
[2017-10-09] MEDS: Furosemide 40 MG/4 ML VIAL SLOW IVP SCH ×2 (08:54→14:24)
[2017-10-09] MEDS: Famotidine 20 MG TAB PO SCH ×2 (08:54→21:03)
[2017-10-09] MEDS ORDERED: Carvedilol 3.125 MG TAB PO SCH (09:00)
[2017-10-09] MEDS ORDERED: Gabapentin 300 MG CAP PO SCH (11:15)
--- NOTE | 2017-10-09 11:15 | PDOC.PN ---
- Subjective Encounter Start Date: 10/09/17 Encounter Start Time: 10:00 Patient seen and examined. No new complaints. No overnight events s/p CABG X 3 she sat in chair, she had BM, doing well - Objective Resuscitation Status: Resuscitation Status DNR:Do Not Resuscitate MAR Reviewed: Yes Vital Signs & Weight: Vital Signs (12 hours) Temp Pulse Resp BP Pulse Ox 10/09/17 08:00 97.8 F 85 16 98 10/09/17 07:48 77 14 10/09/17 04:00 98.1 F 10/09/17 02:00 80 150/50 H 10/09/17 00:00 98.2 F 93 L Weight Admit Weight 168 lb 1.6 oz Weight 179 lb 0.246 oz Most Recent Monitor Data Heart Rate from ECG 79 NIBP 135/49 NIBP BP-Mean 98 Respiration from ECG 24 SpO2 96 I&O: 10/08/17 10/09/17 10/10/17 06:59 06:59 06:59 Intake Total 2270.6 180 Output Total 1285 220 Balance 985.6 -40 Result Diagrams: 10/09/17 04:35 10/09/17 04:35 Additional Labs: Accuchecks 10/09/17 10/09/17 10/09/17 06:18 05:29 04:26 POC Glucose 113 H 114 H 113 H 10/09/17 10/09/17 10/09/17 03:20 02:16 01:37 POC Glucose 112 H 134 H 126 H 10/09/17 10/08/17 10/08/17 00:40 23:33 22:36 POC Glucose 142 H 155 H 148 H 10/08/17 10/08/17 10/08/17 21:08 19:55 19:06 POC Glucose 103 119 H 114 H 10/08/17 10/08/17 10/08/17 17:49 16:48 15:46 POC Glucose 113 H 153 H 190 H 10/08/17 10/08/17 10/08/17 14:09 13:31 12:51 POC Glucose 210 H 152 H 151 H 10/08/17 10/08/17 10/08/17 12:06 11:35 11:10 POC Glucose 181 H 208 H 207 H Radiology Reviewed by me: Yes (chest xray) EKG Reviewed by me: Yes (nsr) Phys Exam - Physical Examination Constitutional: NAD HEENT: PERRLA, moist MMs, sclera anicteric Neck: no JVD, supple Respiratory: no wheezing, no rales, no rhonchi chest tube+ Cardiovascular: RRR, no significant murmur, no rub Gastrointestinal: soft, non-tender, no distention, positive bowel sounds Musculoskeletal: no edema, pulses present Neurological: non-focal, normal sensation, moves all 4 limbs Lymphatic: no nodes Psychiatric: normal affect, A&O x 3 Skin: no rash, normal turgor Dx/Plan (1) Unstable angina Status: Acute (2) 3-vessel coronary artery disease Status: Chronic (3) S/P CABG x 3 Code(s): Z95.1 - PRESENCE OF AORTOCORONARY BYPASS GRAFT Status: Acute (4) Hypokalemia Code(s): E87.6 - HYPOKALEMIA Status: Resolved (5) Anemia, normocytic normochromic Code(s): D64.9 - ANEMIA, UNSPECIFIED Status: Chronic (6) CKD (chronic kidney disease) stage 3, GFR 30-59 ml/min Status: Chronic (7) COPD (chronic obstructive pulmonary disease) Status: Chronic (8) Carotid stenosis, left Code(s): I65.22 - OCCLUSION AND STENOSIS OF LEFT CAROTID ARTERY Status: Chronic (9) DM type 2 (diabetes mellitus, type 2) Status: Chronic (10) HTN (hypertension) Code(s): I10 - ESSENTIAL (PRIMARY) HYPERTENSION Status: Chronic (11) Hyperlipidemia Code(s): E78.5 - HYPERLIPIDEMIA, UNSPECIFIED Status: Chronic (12) Obesity (BMI 30.0-34.9) Code(s): E66.9 - OBESITY, UNSPECIFIED Status: Chronic (13) PVD (peripheral vascular disease) Code(s): I73.9 - PERIPHERAL VASCULAR DISEASE, UNSPECIFIED Status: Chronic - Plan cont current plan of care * medication reviewed as below * symptomatic treatment * restart her gabapentin * doing well * continue post CABG care as per surgeon and cardiology. * pt prefers to go to rehab on discharge if her insurance approves Review of Systems - Review of Systems Eyes: negative: Pain, Vision Change, Conjunctivae Inflammation, Eyelid Inflammation, Redness, Other ENT: negative: Ear Pain, Ear Discharge, Nose Pain, Nose Discharge, Nose Congestion, Mouth Pain, Mouth Swelling, Throat Pain, Throat Swelling, Other Respiratory: negative: Cough, Dry, Shortness of Breath, Hemoptysis, SOB with Excertion, Pleuritic Pain, Sputum, Wheezing Cardiovascular: negative: chest pain, palpitations, orthopnea, paroxysmal nocturnal dyspnea, edema, light headedness, other Gastrointestinal: negative: Nausea, Vomiting, Abdominal Pain, Diarrhea, Constipation, Melena, Hematochezia, Other Genitourinary: negative: Dysuria, Frequency, Incontinence, Hematuria, Retention , Other Musculoskeletal: negative: Neck Pain, Shoulder Pain, Arm Pain, Back Pain, Hand Pain, Leg Pain, Foot Pain, Other Skin: negative: Rash, Lesions, Esequiel, Bruising, Other - Medications/Allergies Allergies/Adverse Reactions: Allergies Allergy/AdvReac Type Severity Reaction Status Date / Time No Known Allergies Allergy Unverified 06/09/13 07:56 Medications: Current Medications Hydrocodone Bitart/Acetaminophen ([place] 5/325) 1 tab PO Q4H PRN PRN Reason: Moderate Pain (4-6) Hydrocodone Bitart/Acetaminophen ([place] 5/325) 2 tab PO Q4H PRN PRN Reason: Severe Pain (7-10) Last Admin: 10/09/17 07:35 Dose: 2 tab Al Hydroxide/Mg Hydroxide (Maalox) 30 ml PO Q4H PRN PRN Reason: Indigestion Albuterol/Ipratropium (Duoneb) 3 ml NEB [id number] PRN PRN Reason: SHORTNESS OF BREATH Last Admin: 10/09/17 07:48 Dose: 3 ml Artificial Tears (Tears Naturale) 1 drop EA EYE PRN PRN PRN Reason: Dry Eyes Bisacodyl (Dulcolax) 10 mg PO Q12H PRN PRN Reason: Constipation Bisacodyl (Dulcolax) 10 mg MA Q12H PRN PRN Reason: Constipation Carvedilol (Coreg) 3.125 mg PO BID-[facility] Dextrose/Water (Dextrose 50%) 25 gm SLOW IVP PRN PRN PRN Reason: PER HYPOGLYCEMIC PROTOCOL Diphenhydramine HCl (Benadryl) 25 mg PO Q6H PRN PRN Reason: Itching & Insomnia or David Osman Famotidine (Pepcid) 20 mg PO Q12HR [facility] Last Admin: 10/09/17 08:54 Dose: 20 mg Furosemide (Lasix) 40 mg SLOW IVP 0800,1400 [facility] Stop: 10/09/17 14:01 Last Admin: 10/09/17 08:54 Dose: 40 mg Gabapentin (Neurontin) 300 mg PO BID YONATHAN Gabapentin (Neurontin) 300 mg PO NOW YONATHAN Stop: 10/09/17 13:00 Glucagon (Glucagon) 1 mg SC PRN PRN PRN Reason: PER HYPOGLYCEMIC PROTOCOL Guaifenesin (Mucinex) 1,200 mg PO Q12HR [facility] Last Admin: 10/09/17 08:53 Dose: 1,200 mg Guaifenesin/Dextromethorphan (Robitussin Dm) 15 ml PO Q4H PRN PRN Reason: Cough Dextrose/Water (D5w) 1,000 mls @ 0 mls/hr IV INF PRN; As Directed PRN Reason: PRN HYPOGLYCEMIC PROTOCOL Insulin Glargine (Lantus) 0 units SC ONE PRN PRN Reason: PER OPEN HEART ORDERS Stop: 10/09/17 23:00 Insulin Human Regular (Humulin R) 0 units SC Q4H PRN; Protocol PRN Reason: POST OP SLIDING SCALE Mineral Oil (Fleet Mineral Oil) 133 ml MA DAILYPRN PRN PRN Reason: Constipation Nitroglycerin (Nitrostat) 0.4 mg SL Q5MIN PRN PRN Reason: Chest Pain Ondansetron HCl (Zofran) 4 mg IVP Q6H PRN PRN Reason: Nausea/Vomiting Last Admin: 10/09/17 10:16 Dose: 4 mg Rosuvastatin Calcium (Crestor) 20 mg PO HS [facility] Sodium Chloride (Flush - Normal Saline) 10 ml IVF Q12HR [facility] Last Admin: 10/09/17 10:29 Dose: 10 ml Zolpidem Tartrate (Ambien) 5 mg PO HSPRN PRN PRN Reason: Insomnia
[2017-10-09] MEDS: Carvedilol 3.125 MG TAB PO SCH (16:16)
[2017-10-09] MEDS: Insulin Regular 300 UNITS/3 ML VIAL SC PRN (16:38)
[2017-10-09] MEDS: Rosuvastatin 20 MG TAB PO SCH (21:03)
[2017-10-09] MEDS: Gabapentin 300 MG CAP PO SCH (21:03)
[2017-10-10] MEDS: HYDROcodone/Acetaminophen 5/325 mg Tablet PO PRN (03:15)
[2017-10-10 05:13] LABS: #Lymphocytes 2.6 thou/uL (1.20-3.40); #Monocytes 1.6 thou/uL (0.11-0.59); #Neutrophils 14.9 thou/uL (1.40-6.50); %Basophils 0.1 % (0.0-1.0); %Eosinophils 0.3 % (0.0-10.0); %Lymphocytes 13.7 % (21.0-51.0); %Monocytes 8.3 % (0.0-10.0); %Neutrophils 77.7 % (42.0-75.0); Hemoglobin 9.3 g/dL (12.0-16.0); Mean Corpuscular HGB CONC 32.7 g/dL (32.0-36.0); Mean Corpuscular Hemoglobin 31.3 pg (27.0-31.0); Mean Corpuscular Volume 95.9 fL (78.0-98.0); Mean Platelet Volume 7.6 fL (7.4-10.4); Platelet Count 184 thou/uL (130-400); RBC Distribution Width 13.5 % (11.5-14.5); Red Blood Cell (RBC) Count 2.97 mill/uL (4.20-5.40); White Blood Cell (WBC) Count 19.2 thou/uL (4.8-10.8)
[2017-10-10 05:24] LABS: Anion Gap 12 mmol/L (10-20); BUN (Urea Nitrogen) 27 mg/dL (9.8-20.1); Calc. Creatinine Clearance 43 mL/min (70-130); Calcium 8.3 mg/dL (7.8-10.44); Carbon Dioxide 22 mmol/L (23-31); Chloride 105 mmol/L (98-107); Estimated GFR-MDRD 34; Glucose 211 mg/dL (83-110); Potassium 4.8 mmol/L (3.5-5.1); Sodium 134 mmol/L (136-145)
--- NOTE | 2017-10-10 07:40 | RAD ---
PORTABLE CHEST: Date: 10/10/17 INDICATION: Postop sternotomy follow-up. COMPARISON: 10/09/17. FINDINGS/IMPRESSION: Chest drainage catheter is again noted. Bibasilar infiltrates and/or atelectasis with hazy infiltrate in the left mid lung. Streaky atelectasis in the right mid lung. Heart is mildly enlarged with posto p sternotomy change. Central line is unchanged with tip overlying the SVC. The chest findings have not significantly changed from yesterday. POS: [facility]
[2017-10-10] MEDS: Sodium Chloride 0.9% 1,000 ML IV SCH (08:00)
[2017-10-10] MEDS: Famotidine 20 MG TAB PO SCH ×2 (08:03→20:43)
[2017-10-10] MEDS: Gabapentin 300 MG CAP PO SCH ×2 (08:03→20:43)
[2017-10-10] MEDS: guaiFENesin ER 600 MG TAB PO SCH ×2 (08:03→20:43)
[2017-10-10] MEDS: Insulin Regular 300 UNITS/3 ML VIAL SC PRN ×3 (08:04→19:11)
[2017-10-10] MEDS: Carvedilol 3.125 MG TAB PO SCH ×2 (08:04→16:28)
[2017-10-10] MEDS: Alogliptin 6.25 MG TAB PO SCH (09:58)
[2017-10-10] MEDS: cefTRIAXone\\ROCEPHIN 1 GM in Sodium Chloride 0.9% 100 ML IVPB SCH (09:59)
[2017-10-10 10:24] LABS: Bilirubin Small (Negative); Blood, Urine Negative (Negative); Clarity CLOUDY (Clear); Glucose, Urine (Dipstick) Negative (Negative); Leukocyte Small (Negative); Nitrite Negative (Negative); Protein, Urine (Dipstick) 30 mg/dL (Neg-Trace); Specific Gravity, Urine 1.024 (1.002-1.036)
[2017-10-10 10:27] LABS: Bacteria/HPF None Seen HPF (None Seen)
[2017-10-10 10:29] LABS: Pathc Cast-AUWi Flag 8.86 (0-2.49)
[2017-10-10 10:50] LABS: Transitional Epithelial 0-3 HPF (0-3)
--- NOTE | 2017-10-10 14:00 | PDOC.PN ---
- Subjective Encounter Start Date: 10/10/17 Encounter Start Time: 13:55 Subjective: feels tired and sleepy.some phlegmn.no SOB/CP -: no dysuria/no AP/N/V/D - Objective Resuscitation Status: Resuscitation Status FULL:Full Resuscitation MAR Reviewed: Yes Vital Signs & Weight: Vital Signs (12 hours) Temp Pulse Pulse Pulse Resp BP BP 10/10/17 11:49 98 F 72 18 10/10/17 11:43 77 63 157/67 H 155/91 H 10/10/17 08:36 63 72 160/68 H 139/67 10/10/17 07:15 98.3 F 70 18 10/10/17 07:14 98.3 F 70 18 10/10/17 04:15 10/10/17 04:00 98.7 F 74 16 BP Pulse Ox Pulse Ox Pulse Ox 10/10/17 11:49 155/91 H 94 L 10/10/17 11:43 87 L 94 L 10/10/17 08:36 91 L 91 L 10/10/17 07:15 91 L 10/10/17 07:14 126/62 91 L 10/10/17 04:15 95 10/10/17 04:00 132/59 L 90 L Weight Admit Weight 168 lb 1.6 oz Weight 184 lb 3.2 oz Most Recent Monitor Data Heart Rate from ECG 70 NIBP 126/50 NIBP BP-Mean 62 Respiration from ECG 29 SpO2 94 I&O: 10/09/17 10/10/17 10/11/17 06:59 06:59 06:59 Intake Total 2270.6 480 Output Total 1285 655 Balance 985.6 -175 Result Diagrams: 10/10/17 04:49 10/10/17 04:49 Additional Labs: Accuchecks 10/10/17 10/10/17 10:47 05:45 POC Glucose 191 H 239 H Microbiology 09/29/17 16:00 Urine voided Urine Culture - Final Escherichia coli Laboratory Tests 10/06/17 10/08/17 10/08/17 20:02 04:49 14:33 Creatinine 1.25 H 1.10 0.98 10/09/17 10/10/17 04:35 04:49 Creatinine 1.04 1.51 H labs reviewed Radiology Reviewed by me: Yes (CXR- left middle lobe infiltrate) Phys Exam - Physical Examination Constitutional: NAD sleepy and tired looking HEENT: PERRLA, moist MMs, sclera anicteric, oral pharynx no lesions Neck: no nodes, no JVD, supple, full ROM Respiratory: no wheezing, no rales, no rhonchi Cardiovascular: RRR, no significant murmur surgical scar well healing Gastrointestinal: soft, non-tender, no distention, positive bowel sounds Musculoskeletal: no edema, pulses present Neurological: non-focal, normal sensation, moves all 4 limbs Psychiatric: normal affect, A&O x 3 Skin: no rash Dx/Plan (1) Unstable angina Status: Acute (2) NEGRA (acute kidney injury) Code(s): N17.9 - ACUTE KIDNEY FAILURE, UNSPECIFIED Status: Acute (3) S/P CABG x 3 Code(s): Z95.1 - PRESENCE OF AORTOCORONARY BYPASS GRAFT Status: Acute (4) 3-vessel coronary artery disease Status: Chronic (5) Anemia, normocytic normochromic Code(s): D64.9 - ANEMIA, UNSPECIFIED Status: Chronic (6) CKD (chronic kidney disease) stage 3, GFR 30-59 ml/min Status: Chronic (7) COPD (chronic obstructive pulmonary disease) Status: Chronic (8) Carotid stenosis, left Code(s): I65.22 - OCCLUSION AND STENOSIS OF LEFT CAROTID ARTERY Status: Chronic (9) DM type 2 (diabetes mellitus, type 2) Status: Chronic (10) HTN (hypertension) Code(s): I10 - ESSENTIAL (PRIMARY) HYPERTENSION Status: Chronic (11) Hyperlipidemia Code(s): E78.5 - HYPERLIPIDEMIA, UNSPECIFIED Status: Chronic (12) Obesity (BMI 30.0-34.9) Code(s): E66.9 - OBESITY, UNSPECIFIED Status: Chronic (13) PVD (peripheral vascular disease) Code(s): I73.9 - PERIPHERAL VASCULAR DISEASE, UNSPECIFIED Status: Chronic - Plan PT/OT, out of bed/ambulate, DVT proph w/SCDs Cr slightly higher today.likley due to lasix given yesterday.monitor -: Start ASA.Cont Coreg,statin. -: avoid KAYLYN-I/ARB for now given NEGRA.start when Cr imprves -: add empiric ABx for Possible Left PNA. -: recheck UA looks contaminated. * .am labs. * Rehab eval. * ambulate more Review of Systems - Review of Systems Constitutional: weakness, malaise. negative: fever, chills, sweats, other Respiratory: Cough, Sputum. negative: Dry, Shortness of Breath, Hemoptysis, SOB with Excertion, Pleuritic Pain, Wheezing Cardiovascular: negative: chest pain, palpitations, orthopnea, paroxysmal nocturnal dyspnea, edema, light headedness, other Gastrointestinal: negative: Nausea, Vomiting, Abdominal Pain, Diarrhea, Constipation, Melena, Hematochezia, Other Genitourinary: negative: Dysuria, Frequency, Incontinence, Hematuria, Retention , Other Skin: negative: Rash, Lesions, Esequiel, Bruising, Other Neurological: negative: Weakness, Numbness, Incoordination, Change in Speech, Confusion, Seizures, Other - Medications/Allergies Allergies/Adverse Reactions: Allergies Allergy/AdvReac Type Severity Reaction Status Date / Time No Known Allergies Allergy Unverified 06/09/13 07:56 Medications: Current Medications Hydrocodone Bitart/Acetaminophen ([place] 5/325) 1 tab PO Q4H PRN PRN Reason: Moderate Pain (4-6) Hydrocodone Bitart/Acetaminophen ([place] 5/325) 2 tab PO Q4H PRN PRN Reason: Severe Pain (7-10) Last Admin: 10/10/17 03:15 Dose: 2 tab Al Hydroxide/Mg Hydroxide (Maalox) 30 ml PO Q4H PRN PRN Reason: Indigestion Albuterol/Ipratropium (Duoneb) 3 ml NEB [id number] PRN PRN Reason: SHORTNESS OF BREATH Last Admin: 10/09/17 07:48 Dose: 3 ml Alogliptin Benzoate (Alogliptin) 12.5 mg PO DAILY [facility] Last Admin: 10/10/17 09:58 Dose: 12.5 mg Artificial Tears (Tears Naturale) 1 drop EA EYE PRN PRN PRN Reason: Dry Eyes Bisacodyl (Dulcolax) 10 mg PO Q12H PRN PRN Reason: Constipation Bisacodyl (Dulcolax) 10 mg [place] Q12H PRN PRN Reason: Constipation Carvedilol (Coreg) 3.125 mg PO BID-[facility] Last Admin: 10/10/17 08:04 Dose: 3.125 mg Dextrose/Water (Dextrose 50%) 25 gm SLOW IVP PRN PRN PRN Reason: PER HYPOGLYCEMIC PROTOCOL Diphenhydramine HCl (Benadryl) 25 mg PO Q6H PRN PRN Reason: Itching & Insomnia or David Osman Famotidine (Pepcid) 20 mg PO Q12HR [facility] Last Admin: 10/10/17 08:03 Dose: Not Given Gabapentin (Neurontin) 300 mg PO BID [facility] Last Admin: 10/10/17 08:03 Dose: 300 mg Glucagon (Glucagon) 1 mg SC PRN PRN PRN Reason: PER HYPOGLYCEMIC PROTOCOL Guaifenesin (Mucinex) 1,200 mg PO Q12HR [facility] Last Admin: 10/10/17 08:03 Dose: 1,200 mg Guaifenesin/Dextromethorphan (Robitussin Dm) 15 ml PO Q4H PRN PRN Reason: Cough Dextrose/Water (D5w) 1,000 mls @ 0 mls/hr IV INF PRN; As Directed PRN Reason: PRN HYPOGLYCEMIC PROTOCOL Ceftriaxone Sodium 1 gm/ (Sodium Chloride) 100 mls @ 200 mls/hr IVPB 0900 [facility] Last Admin: 10/10/17 09:59 Dose: 100 mls Insulin Human Regular (Humulin R) 0 units SC Q4H PRN; Protocol PRN Reason: POST OP SLIDING SCALE Last Admin: 10/10/17 11:45 Dose: 4 unit Mineral Oil (Fleet Mineral Oil) 133 ml [place] DAILYPRN PRN PRN Reason: Constipation Nitroglycerin (Nitrostat) 0.4 mg SL Q5MIN PRN PRN Reason: Chest Pain Ondansetron HCl (Zofran) 4 mg IVP Q6H PRN PRN Reason: Nausea/Vomiting Last Admin: 10/09/17 10:16 Dose: 4 mg Rosuvastatin Calcium (Crestor) 20 mg PO HS [facility] Last Admin: 10/09/17 21:03 Dose: 20 mg Sodium Chloride (Flush - Normal Saline) 10 ml IVF Q12HR [facility] Last Admin: 10/10/17 08:04 Dose: 10 ml Zolpidem Tartrate (Ambien) 5 mg PO HSPRN PRN PRN Reason: Insomnia
--- NOTE | 2017-10-10 15:36 | EKG ---
Test Reason : SOB/CHF Blood Pressure : / mmHG Vent. Rate : 078 BPM Atrial Rate : 078 BPM P-R Int : 160 ms QRS Dur : 076 ms QT Int : 404 ms P-R-T Axes : 038 098 076 degrees QTc Int : 460 ms Normal sinus rhythm Rightward axis Septal infarct , age undetermined Abnormal ECG Confirmed by ISABELLA ROLDAN M.D. ([id number]), assignment desk editor DEACON RICHMOND ([id number]) on 10/10/2017 3:36:12 PM Referred By: Confirmed By:ISABELLA ROLDAN M.D.
[2017-10-10] MEDS: Rosuvastatin 20 MG TAB PO SCH (20:43)
[2017-10-11] MEDS: HYDROcodone/Acetaminophen 5/325 mg Tablet PO PRN ×2 (02:54→20:07)
[2017-10-11 05:12] LABS: #Eosinphils 0.1 thou/uL (0.0-0.7); #Lymphocytes 2.3 thou/uL (1.20-3.40); #Monocytes 1.1 thou/uL (0.11-0.59); #Neutrophils 14.2 thou/uL (1.40-6.50); %Basophils 0.2 % (0.0-1.0); %Eosinophils 0.4 % (0.0-10.0); %Lymphocytes 12.8 % (21.0-51.0); %Monocytes 6.3 % (0.0-10.0); %Neutrophils 80.3 % (42.0-75.0); Hemoglobin 8.5 g/dL (12.0-16.0); Mean Corpuscular HGB CONC 32.6 g/dL (32.0-36.0); Mean Corpuscular Hemoglobin 31.1 pg (27.0-31.0); Mean Corpuscular Volume 95.5 fL (78.0-98.0); Mean Platelet Volume 7.5 fL (7.4-10.4); Platelet Count 176 thou/uL (130-400); RBC Distribution Width 13.2 % (11.5-14.5); Red Blood Cell (RBC) Count 2.72 mill/uL (4.20-5.40); White Blood Cell (WBC) Count 17.7 thou/uL (4.8-10.8)
[2017-10-11 05:30] LABS: Anion Gap 13 mmol/L (10-20); BUN (Urea Nitrogen) 35 mg/dL (9.8-20.1); Calc. Creatinine Clearance 49 mL/min (70-130); Calcium 8.2 mg/dL (7.8-10.44); Carbon Dioxide 21 mmol/L (23-31); Chloride 102 mmol/L (98-107); Estimated GFR-MDRD 39; Glucose 165 mg/dL (83-110); Sodium 132 mmol/L (136-145)
[2017-10-11] MEDS: Alogliptin 6.25 MG TAB PO SCH (09:26)
[2017-10-11] MEDS: Carvedilol 6.25 MG TAB PO SCH ×2 (09:26→16:03)
[2017-10-11] MEDS: cefTRIAXone\\ROCEPHIN 1 GM in Sodium Chloride 0.9% 100 ML IVPB SCH (09:27)
[2017-10-11] MEDS: Famotidine 20 MG TAB PO SCH ×2 (09:28→19:53)
[2017-10-11] MEDS: Gabapentin 300 MG CAP PO SCH ×2 (09:28→19:53)
[2017-10-11] MEDS: guaiFENesin ER 600 MG TAB PO SCH ×2 (09:28→19:53)
[2017-10-11] MEDS ORDERED: Furosemide 20 MG TAB PO SCH (09:30)
[2017-10-11] MEDS: Aspirin 81 mg Enteric Coated Tablet PO SCH (09:38)
--- NOTE | 2017-10-11 14:41 | PDOC.PN ---
- Subjective Encounter Start Date: 10/11/17 Encounter Start Time: 14:39 Subjective: feels much better. no CP/SOB/PATEL -: walked in the hallways w CR w/o difficulty - Objective Resuscitation Status: Resuscitation Status FULL:Full Resuscitation MAR Reviewed: Yes Vital Signs & Weight: Vital Signs (12 hours) Temp Pulse Pulse Pulse Resp BP BP 10/11/17 12:00 98.6 F 65 20 10/11/17 11:01 75 70 150/68 H 10/11/17 09:26 134/60 10/11/17 08:42 80 73 139/64 10/11/17 08:00 97.8 F 75 18 10/11/17 04:00 98.2 F 72 20 BP BP Pulse Ox Pulse Ox Pulse Ox 10/11/17 12:00 94 L 10/11/17 11:01 146/60 H 91 L 94 L 10/11/17 09:26 10/11/17 08:42 121/62 92 L 96 10/11/17 08:00 134/60 94 L 10/11/17 04:00 133/61 94 L Weight Admit Weight 168 lb 1.6 oz Weight 187 lb 9.6 oz Most Recent Monitor Data Heart Rate from ECG 70 NIBP 126/50 NIBP BP-Mean 62 Respiration from ECG 29 SpO2 94 I&O: 10/10/17 10/11/17 10/12/17 06:59 06:59 06:59 Intake Total 480 240 Output Total 655 200 Balance -175 40 Result Diagrams: 10/11/17 04:31 10/11/17 04:31 Additional Labs: Accuchecks 10/11/17 10/11/17 10/10/17 10:51 05:26 23:50 POC Glucose 203 H 176 H 222 H 10/10/17 10/10/17 20:08 16:38 POC Glucose 227 H 166 H Laboratory Tests 10/06/17 10/08/17 10/08/17 20:02 04:49 14:33 Creatinine 1.25 H 1.10 0.98 10/09/17 10/10/17 10/11/17 04:35 04:49 04:31 Creatinine 1.04 1.51 H 1.34 H labs reviewed Phys Exam - Physical Examination Constitutional: NAD HEENT: PERRLA, moist MMs, sclera anicteric, oral pharynx no lesions Neck: no nodes, no JVD, supple, full ROM Respiratory: no wheezing, no rales, no rhonchi, clear to auscultation bilateral Cardiovascular: RRR, no significant murmur, no rub Gastrointestinal: soft, non-tender, no distention, positive bowel sounds Musculoskeletal: no edema, pulses present Neurological: non-focal, normal sensation, moves all 4 limbs Psychiatric: normal affect, A&O x 3 Skin: no rash Dx/Plan (1) PNA (pneumonia) Code(s): J18.9 - PNEUMONIA, UNSPECIFIED ORGANISM Status: Acute (2) NEGRA (acute kidney injury) Code(s): N17.9 - ACUTE KIDNEY FAILURE, UNSPECIFIED Status: Acute (3) Unstable angina Status: Acute Comment: s/p CABG (4) S/P CABG x 3 Code(s): Z95.1 - PRESENCE OF AORTOCORONARY BYPASS GRAFT Status: Acute (5) 3-vessel coronary artery disease Status: Chronic (6) Anemia, normocytic normochromic Code(s): D64.9 - ANEMIA, UNSPECIFIED Status: Chronic (7) CKD (chronic kidney disease) stage 3, GFR 30-59 ml/min Status: Chronic (8) COPD (chronic obstructive pulmonary disease) Status: Chronic (9) Carotid stenosis, left Code(s): I65.22 - OCCLUSION AND STENOSIS OF LEFT CAROTID ARTERY Status: Chronic (10) DM type 2 (diabetes mellitus, type 2) Status: Chronic (11) HTN (hypertension) Code(s): I10 - ESSENTIAL (PRIMARY) HYPERTENSION Status: Chronic (12) Hyperlipidemia Code(s): E78.5 - HYPERLIPIDEMIA, UNSPECIFIED Status: Chronic (13) Obesity (BMI 30.0-34.9) Code(s): E66.9 - OBESITY, UNSPECIFIED Status: Chronic (14) PVD (peripheral vascular disease) Code(s): I73.9 - PERIPHERAL VASCULAR DISEASE, UNSPECIFIED Status: Chronic - Plan out of bed/ambulate, DVT proph w/SCDs renal Fx improving. monitor.avoid nephrotoxins -: add Low dose ASA -: KAYLYN-I when renal Fx improves -: cont BB,statin.cont empiric ABx for PNA -: DC when oK w CTS & cardiology.Hemodynamically stable * .wants rehab . will consult Review of Systems - Review of Systems Constitutional: negative: fever, chills, sweats, weakness, malaise, other Respiratory: negative: Cough, Dry, Shortness of Breath, Hemoptysis, SOB with Excertion, Pleuritic Pain, Sputum, Wheezing Cardiovascular: negative: chest pain, palpitations, orthopnea, paroxysmal nocturnal dyspnea, edema, light headedness, other Gastrointestinal: negative: Nausea, Vomiting, Abdominal Pain, Diarrhea, Constipation, Melena, Hematochezia, Other Genitourinary: negative: Dysuria, Frequency, Incontinence, Hematuria, Retention , Other Musculoskeletal: negative: Neck Pain, Shoulder Pain, Arm Pain, Back Pain, Hand Pain, Leg Pain, Foot Pain, Other Neurological: negative: Weakness, Numbness, Incoordination, Change in Speech, Confusion, Seizures, Other - Medications/Allergies Allergies/Adverse Reactions: Allergies Allergy/AdvReac Type Severity Reaction Status Date / Time No Known Allergies Allergy Unverified 06/09/13 07:56 Medications: Current Medications Hydrocodone Bitart/Acetaminophen ([place] 5/325) 1 tab PO Q4H PRN PRN Reason: Moderate Pain (4-6) Hydrocodone Bitart/Acetaminophen ([place] 5/325) 2 tab PO Q4H PRN PRN Reason: Severe Pain (7-10) Last Admin: 10/11/17 02:54 Dose: 2 tab Al Hydroxide/Mg Hydroxide (Maalox) 30 ml PO Q4H PRN PRN Reason: Indigestion Albuterol/Ipratropium (Duoneb) 3 ml NEB [id number] PRN PRN Reason: SHORTNESS OF BREATH Last Admin: 10/09/17 07:48 Dose: 3 ml Alogliptin Benzoate (Alogliptin) 12.5 mg PO DAILY [facility] Last Admin: 10/11/17 09:26 Dose: 12.5 mg Artificial Tears (Tears Naturale) 1 drop EA EYE PRN PRN PRN Reason: Dry Eyes Aspirin (Ecotrin) 81 mg PO DAILY [facility] Last Admin: 10/11/17 09:38 Dose: 81 mg Bisacodyl (Dulcolax) 10 mg PO Q12H PRN PRN Reason: Constipation Bisacodyl (Dulcolax) 10 mg [place] Q12H PRN PRN Reason: Constipation Carvedilol (Coreg) 6.25 mg PO BID-[facility] Last Admin: 10/11/17 09:26 Dose: 6.25 mg Dextrose/Water (Dextrose 50%) 25 gm SLOW IVP PRN PRN PRN Reason: PER HYPOGLYCEMIC PROTOCOL Diphenhydramine HCl (Benadryl) 25 mg PO Q6H PRN PRN Reason: Itching & Insomnia or David Osman Famotidine (Pepcid) 20 mg PO Q12HR [facility] Last Admin: 10/11/17 09:28 Dose: 20 mg Gabapentin (Neurontin) 300 mg PO BID [facility] Last Admin: 10/11/17 09:28 Dose: 300 mg Glucagon (Glucagon) 1 mg SC PRN PRN PRN Reason: PER HYPOGLYCEMIC PROTOCOL Guaifenesin (Mucinex) 1,200 mg PO Q12HR [facility] Last Admin: 10/11/17 09:28 Dose: 1,200 mg Guaifenesin/Dextromethorphan (Robitussin Dm) 15 ml PO Q4H PRN PRN Reason: Cough Dextrose/Water (D5w) 1,000 mls @ 0 mls/hr IV INF PRN; As Directed PRN Reason: PRN HYPOGLYCEMIC PROTOCOL Ceftriaxone Sodium 1 gm/ (Sodium Chloride) 100 mls @ 200 mls/hr IVPB 0900 [facility] Last Admin: 10/11/17 09:27 Dose: 100 mls Insulin Human Regular (Humulin R) 0 units [place] Q4H PRN; Protocol PRN Reason: POST OP SLIDING SCALE Last Admin: 10/10/17 19:11 Dose: 4 unit Mineral Oil (Fleet Mineral Oil) 133 ml [place] DAILYPRN PRN PRN Reason: Constipation Nitroglycerin (Nitrostat) 0.4 mg SL Q5MIN PRN PRN Reason: Chest Pain Ondansetron HCl (Zofran) 4 mg IVP Q6H PRN PRN Reason: Nausea/Vomiting Last Admin: 10/09/17 10:16 Dose: 4 mg Rosuvastatin Calcium (Crestor) 20 mg PO HS [facility] Last Admin: 10/10/17 20:43 Dose: 20 mg Sodium Chloride (Flush - Normal Saline) 10 ml IVF Q12HR [facility] Last Admin: 10/11/17 09:29 Dose: 10 ml Zolpidem Tartrate (Ambien) 5 mg PO HSPRN PRN PRN Reason: Insomnia
[2017-10-11] MEDS: Rosuvastatin 20 MG TAB PO SCH (19:53)
[2017-10-12] MEDS: HYDROcodone/Acetaminophen 5/325 mg Tablet PO PRN ×2 (02:38→23:51)
[2017-10-12] MEDS ORDERED: Metolazone 5 MG TAB PO SCH (07:00)
[2017-10-12] MEDS ORDERED: Furosemide 40 MG/4 ML VIAL SLOW IVP SCH (08:45)
[2017-10-12] MEDS: Carvedilol 6.25 MG TAB PO SCH ×2 (10:13→16:23)
[2017-10-12] MEDS: Gabapentin 300 MG CAP PO SCH ×3 (10:19→21:29)
[2017-10-12] MEDS: guaiFENesin ER 600 MG TAB PO SCH ×2 (10:19→21:29)
[2017-10-12] MEDS: Famotidine 20 MG TAB PO SCH ×2 (10:20→21:29)
[2017-10-12] MEDS: Aspirin 81 mg Enteric Coated Tablet PO SCH (10:20)
[2017-10-12] MEDS: Alogliptin 6.25 MG TAB PO SCH (10:21)
[2017-10-12] MEDS: cefTRIAXone\\ROCEPHIN 1 GM in Sodium Chloride 0.9% 100 ML IVPB SCH (10:22)
[2017-10-12] MEDS: Insulin Regular 300 UNITS/3 ML VIAL SC PRN ×3 (10:46→21:30)
[2017-10-12 12:42] VITALS: BMI 33.4
--- NOTE | 2017-10-12 14:02 | RAD ---
CHEST 2 VIEWS: Date: 10/12/17 HISTORY: Low O2 saturation. COMPARISON: 10/10/17. FINDINGS: There are sternotomy wires. There is atherosclerosis of the aorta. Heart is enlarged. Stable left-berenice ed central venous catheter. Interval removal of left-sided chest tube. Small left-sided pleural effus ion. Trace right-sided effusion. Lungs are hyperinflated. Chronic changes are suspected. There is no pneumothorax. IMPRESSION: 1. Cardiomegaly. 2. Atherosclerosis. 3. Areas of scar or atelectasis in the left lung. 4. Small bilateral effusions. POS: [facility]
--- NOTE | 2017-10-12 15:00 | PDOC.PN ---
- Subjective Encounter Start Date: 10/12/17 Encounter Start Time: 14:58 Subjective: feels much better now.denies any SOB/CP/weakness - Objective Resuscitation Status: Resuscitation Status FULL:Full Resuscitation MAR Reviewed: Yes Vital Signs & Weight: Vital Signs (12 hours) Temp Pulse Pulse Pulse Resp BP BP 10/12/17 13:00 78 80 148/69 H 10/12/17 12:00 98.3 F 76 18 10/12/17 10:19 169/75 H 10/12/17 10:13 169/75 H 10/12/17 09:49 69 73 152/66 H 10/12/17 09:08 74 76 164/67 H 10/12/17 08:00 98.3 F 76 18 10/12/17 06:43 98.2 F 63 18 BP BP BP Pulse Ox Pulse Ox Pulse Ox 10/12/17 13:00 143/79 H 93 L 93 L 10/12/17 12:00 167/76 H 94 L 10/12/17 10:19 10/12/17 10:13 10/12/17 09:49 169/75 H 93 L 92 L 10/12/17 09:08 139/64 98 90 L 10/12/17 08:00 163/69 H 94 L 10/12/17 06:43 117/54 L 95 Weight Admit Weight 168 lb 1.6 oz Weight 188 lb 14.4 oz Most Recent Monitor Data Heart Rate from ECG 70 NIBP 126/50 NIBP BP-Mean 62 Respiration from ECG 29 SpO2 94 I&O: 10/11/17 10/12/17 10/13/17 06:59 06:59 06:59 Intake Total 240 Output Total 200 Balance 40 Result Diagrams: 10/11/17 04:31 10/11/17 04:31 Additional Labs: Accuchecks 10/12/17 10/11/17 10/11/17 06:22 21:06 17:06 POC Glucose 161 H 250 H 241 H labs reviewed Phys Exam - Physical Examination Constitutional: NAD HEENT: PERRLA, moist MMs, sclera anicteric, oral pharynx no lesions Neck: no nodes, no JVD, supple, full ROM Respiratory: no wheezing, no rales, no rhonchi, clear to auscultation bilateral Cardiovascular: RRR, no significant murmur, no rub Gastrointestinal: soft, non-tender, no distention, positive bowel sounds Musculoskeletal: no edema, pulses present Neurological: non-focal, normal sensation, moves all 4 limbs Psychiatric: normal affect, A&O x 3 Skin: no rash Dx/Plan (1) PNA (pneumonia) Code(s): J18.9 - PNEUMONIA, UNSPECIFIED ORGANISM Status: Acute Qualifiers: Laterality: bilateral Lung location: lower lobe of lung (2) NEGRA (acute kidney injury) Code(s): N17.9 - ACUTE KIDNEY FAILURE, UNSPECIFIED Status: Acute (3) Unstable angina Status: Acute Comment: s/p CABG (4) S/P CABG x 3 Code(s): Z95.1 - PRESENCE OF AORTOCORONARY BYPASS GRAFT Status: Acute (5) 3-vessel coronary artery disease Status: Chronic (6) Anemia, normocytic normochromic Code(s): D64.9 - ANEMIA, UNSPECIFIED Status: Chronic (7) CKD (chronic kidney disease) stage 3, GFR 30-59 ml/min Status: Chronic (8) COPD (chronic obstructive pulmonary disease) Status: Chronic (9) Carotid stenosis, left Code(s): I65.22 - OCCLUSION AND STENOSIS OF LEFT CAROTID ARTERY Status: Chronic (10) DM type 2 (diabetes mellitus, type 2) Status: Chronic (11) HTN (hypertension) Code(s): I10 - ESSENTIAL (PRIMARY) HYPERTENSION Status: Chronic (12) Hyperlipidemia Code(s): E78.5 - HYPERLIPIDEMIA, UNSPECIFIED Status: Chronic (13) Obesity (BMI 30.0-34.9) Code(s): E66.9 - OBESITY, UNSPECIFIED Status: Chronic (14) PVD (peripheral vascular disease) Code(s): I73.9 - PERIPHERAL VASCULAR DISEASE, UNSPECIFIED Status: Chronic - Plan PT/OT, respiratory therapy, incentive spirometry, out of bed/ambulate, DVT proph w/SCDs Hypoxia without o2 pnc. ? etiology.CXR does not show overt edema -: 1 dose zaroxolyn.cont empiric ABx for PNA.duonebs . -: cardio prudent meds.on ASA,BB,statin. KAYLYN-I added today -: cardiac rehab. -: home meds as below * . Review of Systems - Review of Systems Constitutional: weakness. negative: fever, chills, sweats, malaise, other ENT: negative: Ear Pain, Ear Discharge, Nose Pain, Nose Discharge, Nose Congestion, Mouth Pain, Mouth Swelling, Throat Pain, Throat Swelling, Other Respiratory: SOB with Excertion. negative: Cough, Dry, Shortness of Breath, Hemoptysis, Pleuritic Pain, Sputum, Wheezing Cardiovascular: negative: chest pain, palpitations, orthopnea, paroxysmal nocturnal dyspnea, edema, light headedness, other Gastrointestinal: negative: Nausea, Vomiting, Abdominal Pain, Diarrhea, Constipation, Melena, Hematochezia, Other Genitourinary: negative: Dysuria, Frequency, Incontinence, Hematuria, Retention , Other Musculoskeletal: negative: Neck Pain, Shoulder Pain, Arm Pain, Back Pain, Hand Pain, Leg Pain, Foot Pain, Other Skin: negative: Rash, Lesions, Esequiel, Bruising, Other Neurological: negative: Weakness, Numbness, Incoordination, Change in Speech, Confusion, Seizures, Other - Medications/Allergies Allergies/Adverse Reactions: Allergies Allergy/AdvReac Type Severity Reaction Status Date / Time No Known Allergies Allergy Unverified 06/09/13 07:56 Medications: Current Medications Hydrocodone Bitart/Acetaminophen ([place] 5/325) 1 tab PO Q4H PRN PRN Reason: Moderate Pain (4-6) Last Admin: 10/12/17 02:38 Dose: 1 tab Hydrocodone Bitart/Acetaminophen ([place] 5/325) 2 tab PO Q4H PRN PRN Reason: Severe Pain (7-10) Last Admin: 10/11/17 02:54 Dose: 2 tab Al Hydroxide/Mg Hydroxide (Maalox) 30 ml PO Q4H PRN PRN Reason: Indigestion Albuterol/Ipratropium (Duoneb) 3 ml NEB [id number] PRN PRN Reason: SHORTNESS OF BREATH Last Admin: 10/09/17 07:48 Dose: 3 ml Alogliptin Benzoate (Alogliptin) 12.5 mg PO DAILY [facility] Last Admin: 10/12/17 10:21 Dose: 12.5 mg Artificial Tears (Tears Naturale) 1 drop EA EYE PRN PRN PRN Reason: Dry Eyes Aspirin (Ecotrin) 81 mg PO DAILY [facility] Last Admin: 10/12/17 10:20 Dose: 81 mg Bisacodyl (Dulcolax) 10 mg PO Q12H PRN PRN Reason: Constipation Bisacodyl (Dulcolax) 10 mg [place] Q12H PRN PRN Reason: Constipation Carvedilol (Coreg) 6.25 mg PO BID-[facility] Last Admin: 10/12/17 10:13 Dose: 6.25 mg Dextrose/Water (Dextrose 50%) 25 gm SLOW IVP PRN PRN PRN Reason: PER HYPOGLYCEMIC PROTOCOL Diphenhydramine HCl (Benadryl) 25 mg PO Q6H PRN PRN Reason: Itching & Insomnia or David Osman Famotidine (Pepcid) 20 mg PO Q12HR [facility] Last Admin: 10/12/17 10:20 Dose: 20 mg Gabapentin (Neurontin) 300 mg PO TID [facility] Last Admin: 10/12/17 10:19 Dose: 300 mg Glucagon (Glucagon) 1 mg SC PRN PRN PRN Reason: PER HYPOGLYCEMIC PROTOCOL Guaifenesin (Mucinex) 1,200 mg PO Q12HR [facility] Last Admin: 10/12/17 10:19 Dose: 1,200 mg Guaifenesin/Dextromethorphan (Robitussin Dm) 15 ml PO Q4H PRN PRN Reason: Cough Dextrose/Water (D5w) 1,000 mls @ 0 mls/hr IV INF PRN; As Directed PRN Reason: PRN HYPOGLYCEMIC PROTOCOL Ceftriaxone Sodium 1 gm/ (Sodium Chloride) 100 mls @ 200 mls/hr IVPB 0900 [facility] Last Admin: 10/12/17 10:22 Dose: 100 mls Insulin Human Regular (Humulin R) 0 units [place] Q4H PRN; Protocol PRN Reason: POST OP SLIDING SCALE Last Admin: 10/12/17 10:46 Dose: 6 unit Mineral Oil (Fleet Mineral Oil) 133 ml [place] DAILYPRN PRN PRN Reason: Constipation Nitroglycerin (Nitrostat) 0.4 mg SL Q5MIN PRN PRN Reason: Chest Pain Ondansetron HCl (Zofran) 4 mg IVP Q6H PRN PRN Reason: Nausea/Vomiting Last Admin: 10/09/17 10:16 Dose: 4 mg Quinapril HCl (Accupril) 20 mg PO DAILY [facility] Last Admin: 10/12/17 10:19 Dose: 20 mg Rosuvastatin Calcium (Crestor) 20 mg PO HS [facility] Last Admin: 10/11/17 19:53 Dose: 20 mg Sodium Chloride (Flush - Normal Saline) 10 ml IVF Q12HR [facility] Last Admin: 10/12/17 10:22 Dose: 10 ml Sodium Chloride (Flush - Normal Saline) 10 ml IVF PRN PRN PRN Reason: Saline Flush Zolpidem Tartrate (Ambien) 5 mg PO HSPRN PRN PRN Reason: Insomnia
[2017-10-12] MEDS: Rosuvastatin 20 MG TAB PO SCH (21:29)
[2017-10-13 05:13] LABS: #Basophils 0.1 thou/uL (0.0-0.2); #Eosinphils 0.2 thou/uL (0.0-0.7); #Lymphocytes 2.2 thou/uL (1.20-3.40); #Monocytes 1.4 thou/uL (0.11-0.59); #Neutrophils 7.7 thou/uL (1.40-6.50); %Basophils 0.5 % (0.0-1.0); %Eosinophils 1.7 % (0.0-10.0); %Lymphocytes 18.7 % (21.0-51.0); %Monocytes 12.2 % (0.0-10.0); Hemoglobin 8.3 g/dL (12.0-16.0); Mean Corpuscular HGB CONC 32.5 g/dL (32.0-36.0); Mean Corpuscular Hemoglobin 30.9 pg (27.0-31.0); Mean Corpuscular Volume 95.2 fL (78.0-98.0); Mean Platelet Volume 7.4 fL (7.4-10.4); Platelet Count 258 thou/uL (130-400); RBC Distribution Width 13.7 % (11.5-14.5); Red Blood Cell (RBC) Count 2.69 mill/uL (4.20-5.40); White Blood Cell (WBC) Count 11.5 thou/uL (4.8-10.8)
[2017-10-13 05:31] LABS: Iron 23 ug/dL (50-170); Iron Binding Capacity, Total 200 mcg/dL (265-497)
[2017-10-13 05:32] LABS: Anion Gap 13 mmol/L (10-20); BUN (Urea Nitrogen) 32 mg/dL (9.8-20.1); Calc. Creatinine Clearance 61 mL/min (70-130); Calcium 8.1 mg/dL (7.8-10.44); Carbon Dioxide 22 mmol/L (23-31); Chloride 105 mmol/L (98-107); Estimated GFR-MDRD 48; Glucose 165 mg/dL (83-110); Iron 26 ug/dL (50-170); Iron Binding Capacity, Total 200 mcg/dL (265-497); Potassium 3.5 mmol/L (3.5-5.1); Sodium 136 mmol/L (136-145)
[2017-10-13] MEDS ORDERED: Furosemide 40 MG/4 ML VIAL SLOW IVP SCH ×2 (09:00)
[2017-10-13] MEDS: guaiFENesin ER 600 MG TAB PO SCH ×2 (09:11→20:45)
[2017-10-13] MEDS: Famotidine 20 MG TAB PO SCH ×2 (09:12→20:45)
[2017-10-13] MEDS: Alogliptin 6.25 MG TAB PO SCH (09:12)
[2017-10-13] MEDS: Aspirin 81 mg Enteric Coated Tablet PO SCH (09:13)
[2017-10-13] MEDS: Gabapentin 300 MG CAP PO SCH ×3 (09:13→20:45)
[2017-10-13] MEDS: Carvedilol 6.25 MG TAB PO SCH ×3 (09:13→19:26)
[2017-10-13] MEDS: cefTRIAXone\\ROCEPHIN 1 GM in Sodium Chloride 0.9% 100 ML IVPB SCH (09:15)
[2017-10-13] MEDS: Insulin Regular 300 UNITS/3 ML VIAL SC PRN ×4 (09:20→20:49)
[2017-10-13] MEDS: Furosemide 40 MG/4 ML VIAL SLOW IVP SCH (13:05)
--- NOTE | 2017-10-13 13:56 | PDOC.PN ---
- Subjective Encounter Start Date: 10/13/17 Encounter Start Time: 13:54 Subjective: feels much better today. breathing easier -: 94% on RA on my exam - Objective Resuscitation Status: Resuscitation Status FULL:Full Resuscitation MAR Reviewed: Yes Vital Signs & Weight: Vital Signs (12 hours) Temp Pulse Pulse Pulse Resp BP BP 10/13/17 10:01 82 79 185/77 H 10/13/17 09:13 171/73 H 10/13/17 09:12 171/73 H 10/13/17 07:39 97.9 F 67 18 10/13/17 07:37 97.9 F 67 18 10/13/17 03:35 97.7 F 56 L 17 BP BP BP Pulse Ox Pulse Ox Pulse Ox 10/13/17 10:01 159/71 H 97 92 L 10/13/17 09:13 10/13/17 09:12 10/13/17 07:39 10/13/17 07:37 178/74 H 95 10/13/17 03:35 144/65 H 95 Weight Admit Weight 168 lb 1.6 oz Weight 183 lb 8 oz Most Recent Monitor Data Heart Rate from ECG 70 NIBP 126/50 NIBP BP-Mean 62 Respiration from ECG 29 SpO2 94 I&O: 10/12/17 10/13/17 10/14/17 06:59 06:59 06:59 Intake Total 700 Balance 700 Result Diagrams: 10/13/17 04:37 10/13/17 04:37 Additional Labs: Accuchecks 10/13/17 10/13/17 10/12/17 11:18 06:43 20:52 POC Glucose 196 H 199 H 206 H 10/12/17 10/12/17 17:02 10:46 POC Glucose 212 H 243 H Laboratory Tests 10/06/17 10/06/17 10/08/17 20:02 20:02 04:49 Creatinine 1.25 H 1.10 B-Natriuretic Peptide 116.6 H 10/08/17 10/09/17 10/10/17 14:33 04:35 04:49 Creatinine 0.98 1.04 1.51 H B-Natriuretic Peptide 10/11/17 10/13/17 10/13/17 04:31 04:37 04:37 Creatinine 1.34 H 1.11 H B-Natriuretic Peptide 688.5 H labs reviewed Radiology Reviewed by me: Yes (ECHO-EF 60%.diastolic dysFx) Phys Exam - Physical Examination Constitutional: NAD HEENT: PERRLA, moist MMs, sclera anicteric, TM's clear, oral pharynx no lesions , 2+ tonsils Neck: no nodes, no JVD, supple, full ROM Respiratory: no wheezing, no rales, no rhonchi, clear to auscultation bilateral b/l crackles. Left >Right Cardiovascular: RRR, no significant murmur, no rub Gastrointestinal: soft, non-tender, no distention, positive bowel sounds Musculoskeletal: no edema, pulses present Neurological: non-focal, normal sensation, moves all 4 limbs Psychiatric: normal affect, A&O x 3 Skin: no rash Dx/Plan (1) PNA (pneumonia) Code(s): J18.9 - PNEUMONIA, UNSPECIFIED ORGANISM Status: Acute Qualifiers: Laterality: bilateral Lung location: lower lobe of lung (2) NEGRA (acute kidney injury) Code(s): N17.9 - ACUTE KIDNEY FAILURE, UNSPECIFIED Status: Acute Comment: improving (3) Unstable angina Status: Acute Comment: s/p CABG (4) S/P CABG x 3 Code(s): Z95.1 - PRESENCE OF AORTOCORONARY BYPASS GRAFT Status: Acute (5) 3-vessel coronary artery disease Status: Chronic (6) Anemia, normocytic normochromic Code(s): D64.9 - ANEMIA, UNSPECIFIED Status: Chronic (7) CKD (chronic kidney disease) stage 3, GFR 30-59 ml/min Status: Chronic (8) COPD (chronic obstructive pulmonary disease) Status: Chronic (9) Carotid stenosis, left Code(s): I65.22 - OCCLUSION AND STENOSIS OF LEFT CAROTID ARTERY Status: Chronic (10) DM type 2 (diabetes mellitus, type 2) Status: Chronic (11) HTN (hypertension) Code(s): I10 - ESSENTIAL (PRIMARY) HYPERTENSION Status: Chronic (12) Hyperlipidemia Code(s): E78.5 - HYPERLIPIDEMIA, UNSPECIFIED Status: Chronic (13) Obesity (BMI 30.0-34.9) Code(s): E66.9 - OBESITY, UNSPECIFIED Status: Chronic (14) PVD (peripheral vascular disease) Code(s): I73.9 - PERIPHERAL VASCULAR DISEASE, UNSPECIFIED Status: Chronic - Plan PT/OT, out of bed/ambulate, DVT proph w/SCDs Lasix BID for pulm edema on exam.I/os.ECHO repeated today-same as before -: ? Vtach on monitor.EP consulted by cardiology -: cont Coreg,KAYLYN-I,ASA.statin. -: home meds as below. -: empiric ABx for PNA. clinically better.monitor * . Review of Systems - Review of Systems Constitutional: negative: fever, chills, sweats, weakness, malaise, other Respiratory: negative: Cough, Dry, Shortness of Breath, Hemoptysis, SOB with Excertion, Pleuritic Pain, Sputum, Wheezing Cardiovascular: negative: chest pain, palpitations, orthopnea, paroxysmal nocturnal dyspnea, edema, light headedness, other Gastrointestinal: negative: Nausea, Vomiting, Abdominal Pain, Diarrhea, Constipation, Melena, Hematochezia, Other Genitourinary: negative: Dysuria, Frequency, Incontinence, Hematuria, Retention , Other Musculoskeletal: negative: Neck Pain, Shoulder Pain, Arm Pain, Back Pain, Hand Pain, Leg Pain, Foot Pain, Other Neurological: negative: Weakness, Numbness, Incoordination, Change in Speech, Confusion, Seizures, Other - Medications/Allergies Allergies/Adverse Reactions: Allergies Allergy/AdvReac Type Severity Reaction Status Date / Time No Known Allergies Allergy Unverified 06/09/13 07:56 Medications: Current Medications Hydrocodone Bitart/Acetaminophen ([place] 5/325) 1 tab PO Q4H PRN PRN Reason: Moderate Pain (4-6) Last Admin: 10/12/17 23:51 Dose: 1 tab Hydrocodone Bitart/Acetaminophen ([place] 5/325) 2 tab PO Q4H PRN PRN Reason: Severe Pain (7-10) Last Admin: 10/11/17 02:54 Dose: 2 tab Al Hydroxide/Mg Hydroxide (Maalox) 30 ml PO Q4H PRN PRN Reason: Indigestion Albuterol/Ipratropium (Duoneb) 3 ml NEB [id number] PRN PRN Reason: SHORTNESS OF BREATH Last Admin: 10/09/17 07:48 Dose: 3 ml Alogliptin Benzoate (Alogliptin) 12.5 mg PO DAILY YONATHAN Last Admin: 10/13/17 09:12 Dose: 12.5 mg Artificial Tears (Tears Naturale) 1 drop EA EYE PRN PRN PRN Reason: Dry Eyes Aspirin (Ecotrin) 81 mg PO DAILY [facility] Last Admin: 10/13/17 09:13 Dose: 81 mg Bisacodyl (Dulcolax) 10 mg PO Q12H PRN PRN Reason: Constipation Bisacodyl (Dulcolax) 10 mg DE Q12H PRN PRN Reason: Constipation Carvedilol (Coreg) 12.5 mg PO BID[facility] Last Admin: 10/13/17 09:13 Dose: 12.5 mg Dextrose/Water (Dextrose 50%) 25 gm SLOW IVP PRN PRN PRN Reason: PER HYPOGLYCEMIC PROTOCOL Diphenhydramine HCl (Benadryl) 25 mg PO Q6H PRN PRN Reason: Itching & Insomnia or David Osman Famotidine (Pepcid) 20 mg PO Q12HR [facility] Last Admin: 10/13/17 09:12 Dose: 20 mg Furosemide (Lasix) 40 mg SLOW IVP 0600,1400 [facility] Last Admin: 10/13/17 13:05 Dose: 40 mg Gabapentin (Neurontin) 300 mg PO TID [facility] Last Admin: 10/13/17 09:13 Dose: 300 mg Glucagon (Glucagon) 1 mg SC PRN PRN PRN Reason: PER HYPOGLYCEMIC PROTOCOL Guaifenesin (Mucinex) 1,200 mg PO Q12HR [facility] Last Admin: 10/13/17 09:11 Dose: 1,200 mg Guaifenesin/Dextromethorphan (Robitussin Dm) 15 ml PO Q4H PRN PRN Reason: Cough Dextrose/Water (D5w) 1,000 mls @ 0 mls/hr IV INF PRN; As Directed PRN Reason: PRN HYPOGLYCEMIC PROTOCOL Ceftriaxone Sodium 1 gm/ (Sodium Chloride) 100 mls @ 200 mls/hr IVPB 0900 [facility] Last Admin: 10/13/17 09:15 Dose: 100 mls Insulin Human Regular (Humulin R) 0 units SC Q4H PRN; Protocol PRN Reason: POST OP SLIDING SCALE Last Admin: 10/13/17 13:05 Dose: 4 unit Mineral Oil (Fleet Mineral Oil) 133 ml DE DAILYPRN PRN PRN Reason: Constipation Nitroglycerin (Nitrostat) 0.4 mg SL Q5MIN PRN PRN Reason: Chest Pain Ondansetron HCl (Zofran) 4 mg IVP Q6H PRN PRN Reason: Nausea/Vomiting Last Admin: 10/09/17 10:16 Dose: 4 mg Quinapril HCl (Accupril) 40 mg PO DAILY [facility] Last Admin: 10/13/17 09:12 Dose: 40 mg Rosuvastatin Calcium (Crestor) 20 mg PO HS [facility] Last Admin: 10/12/17 21:29 Dose: 20 mg Sodium Chloride (Flush - Normal Saline) 10 ml IVF Q12HR YONATHAN Last Admin: 10/13/17 09:15 Dose: 10 ml Sodium Chloride (Flush - Normal Saline) 10 ml IVF PRN PRN PRN Reason: Saline Flush Last Admin: 10/13/17 13:05 Dose: 10 ml Zolpidem Tartrate (Ambien) 5 mg PO HSPRN PRN PRN Reason: Insomnia
[2017-10-13] MEDS: Rosuvastatin 20 MG TAB PO SCH (20:45)
--- NOTE | 2017-10-14 01:56 | CON ---
DATE OF CONSULTATION: 10/13/2017 I am seeing Ms. 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 PROBLEMS: 1. Paroxysmal nonsustained atrial tachycardia, asymptomatic. 2. Coronary artery disease. A. Left heart catheterization on 10/07/2017 shows LVF of 60%, multivessel coronary artery disease with recommended bypass surgery. B. Status post coronary artery bypass grafting surgery on 10/06/2017. 3. History of peripheral vascular disease with right carotid endarterectomy for asymptomatic carotid artery stenosis in 2014. 4. Coronary risk factors. A. Prior smoking. B. Type 2 diabetes. C. Dyslipidemia. D. Hypertension. 5. Chronic kidney disease. ALLERGIES: None noted. MEDICATIONS: Prior to admission including quinapril, furosemide, Singulair, gabapentin, amlodipine 10 mg daily, Januvia, Crestor, Ranexa, aspirin. SUBJECTIVE: Mrs. Jack was admitted due to progressive shortness of breath over the last 4-5 years. This was exertional. She had no orthopnea or PND or lower extremity with fluid overload. She underwent heart catheterization demonstrating a three-vessel disease and urgent bypass surgery subsequently. She had uneventful recovery. On the other hand, 4 days after surgery, short nonsustained ventricular tachycardia was noted. Hence echocardiogram was ordered, which demonstrated normal LV function, unchanged from baseline. She had no symptoms with that has happened at nighttime sleep. She got mild resting bradycardia and beta blockers. Rest of the 12-point system otherwise unremarkable. Past history as above. No prior history of dizziness, or loss of consciousness. No stroke-like symptoms. SOCIAL HISTORY: As above, prior history of smoking. No ETOH or drug use. FAMILY HISTORY: Not contributory. PHYSICAL EXAMINATION: VITAL SIGNS: The blood pressure is 164/72, heart rate 64, respiratory rate is 16, temperature 98.3 degrees Fahrenheit. GENERAL: Alert and oriented woman in no apparent distress. NECK: Supple. Jugular veins not distended. LUNGS: Chest is coarse without crackles. CARDIAC: Heart sounds are regular rate and rhythm. No murmur or gallop. Midsternal scar is in the healing process. PMI is nonpalpable. ABDOMEN: Benign. Bowel sounds positive. EXTREMITIES: Lower extremity without edema. No clubbing or cyanosis. Pulses are adequate. NEUROLOGIC: Nonfocal. MUSCULOSKELETAL: No joint swelling or deformity. SKIN: Without rash. DATABASE: EKG was reviewed reviewing initial sinus rhythm at a rate of 78 beats per minute with no ST-T changes. Subsequent EKGs reveal sinus rhythm on 10/12/2017 at 4:30 in the morning with 12 beats wide complex tachycardia with ventricular rates about 110 beats per minute is seen. LABORATORY DATA: White count 11.5, hemoglobin 8.3, platelet count is 258. Sodium 136, potassium 3.5, BUN is 32, creatinine 1.1. The BNP is 688. IMPRESSION AND PLAN: Ms. Jack is a pleasant 72-year-old female with history of peripheral and coronary artery disease, status post three-vessel coronary artery bypass grafting surgery in this admission. She has a normal left ventricular systolic function pre and post bypass surgery, but had a symptomatic 12-beat relatively slow ventricular tachycardia arrhythmia run which appears to be monomorphic. She was asymptomatic. Currently the left ventricular systolic function is preserved. There is no high suspicion for ongoing ischemia based on her smooth recovery course from a bypass surgery. I think her prognosis is benign and ICD therapy is not indicated, I would continue the already initiated beta lexi therapy, which has just been increased to 12.5 twice a day. If ventricular arrhythmias worsen, could consider to be suppressed with amiodarone transiently. I would like to see her back if necessary in the future. Continue routine rehabilitation plan. ANGELO
[2017-10-14] MEDS: Furosemide 40 MG/4 ML VIAL SLOW IVP SCH (06:18)
[2017-10-14 06:59] LABS: Chloride 102 mmol/L (98-107); Potassium 3.4 mmol/L (3.5-5.1); Sodium 139 mmol/L (136-145)
[2017-10-14 07:00] LABS: Calcium 8.9 mg/dL (7.8-10.44); Glucose 163 mg/dL (83-110)
[2017-10-14 07:02] LABS: Anion Gap 13 mmol/L (10-20); Carbon Dioxide 27 mmol/L (23-31)
[2017-10-14 07:04] LABS: Calc. Creatinine Clearance 59 mL/min (70-130); Estimated GFR-MDRD 48
[2017-10-14 07:05] LABS: BUN (Urea Nitrogen) 27 mg/dL (9.8-20.1)
[2017-10-14 08:23] VITALS: TEMP 97.8
[2017-10-14] MEDS ORDERED: Amlodipine 10 MG TAB PO SCH (09:00)
[2017-10-14] MEDS ORDERED: Furosemide 40 MG/4 ML VIAL SLOW IVP SCH (09:00)
[2017-10-14] MEDS: Alogliptin 6.25 MG TAB PO SCH (09:24)
[2017-10-14] MEDS: Aspirin 81 mg Enteric Coated Tablet PO SCH (09:24)
[2017-10-14] MEDS: Carvedilol 6.25 MG TAB PO SCH (09:25)
[2017-10-14] MEDS: Famotidine 20 MG TAB PO SCH (09:25)
[2017-10-14] MEDS: guaiFENesin ER 600 MG TAB PO SCH (09:26)
[2017-10-14] MEDS: Gabapentin 300 MG CAP PO SCH (09:26)
[2017-10-14] MEDS: cefTRIAXone\\ROCEPHIN 1 GM in Sodium Chloride 0.9% 100 ML IVPB SCH (09:26)
--- NOTE | 2017-10-14 09:32 | DIS ---
DATE OF ADMISSION: 10/06/2017 DATE OF DISCHARGE: 10/14/2017 PRINCIPAL DIAGNOSIS: Coronary artery disease. SECONDARY DIAGNOSES: Hypertension, diabetes, cerebrovascular disease, paroxysmal atrial tachycardia, nonsustained slow ventricular tachycardia. PROCEDURES PERFORMED: Cardiac catheterization, 10/07/2017, coronary artery bypass grafting x3 with l eft internal mammary artery to the LAD, reverse greater saphenous vein graft from the aorta to the se cond obtuse marginal and the PDA, 10/08/2017. HISTORY OF PRESENT ILLNESS AND HOSPITAL COURSE: The patient is a 72-year-old woman with known gomez ry disease, who had done well until recently when she began developing rather debilitating dyspnea on exertion. Cardiac catheterization demonstrated progression of her coronary disease and she underwen t surgical revascularization. Findings at the time of surgery were most notable for a very small dis daniel LAD, proximal, but heel and toe of the anastomosis were done over probes to facilitate accurate c onstruction of the anastomosis. Her postoperative course was relatively uncomplicated. She did have some tachycardic rhythms. She was started on antiarrhythmics that readily brought those under contr ol. She had some wheezing in the perioperative period, which responded to p.r.n. nebulizers. She carter d known cerebrovascular disease having undergone a previous carotid endarterectomy and had been lost to carotid followup. She had no recurrence of significant disease in her right carotid and modest di sease in her left. She is now being discharged to rehab primarily for social reasons, as the patient lives alone and does not have family that are in a position to help care for her while she convalesc ed. CURRENT MEDICATIONS: Norvasc 10 mg a day, Coreg 12.5 mg b.i.d., Accupril 40 mg a day, Crestor 20 mg at bedtime, baby aspirin a day, alogliptin 12.5 mg a day, Neurontin 300 mg t.i.d., Mucinex 1200 mg b. i.d. I will plan on seeing her in the office in roughly 1-2 weeks for a wound check and discussed with her the need to get back into annual surveillance on her carotid disease.
[2017-10-14 11:23] VITALS: BP 178/74
--- NOTE | 2017-10-16 08:46 | PQF ---
[facility] Interviews Intern Crystal Reports [employer] K[place] [id number] CLINICAL DOCUMENTATION CLARIFICATION FORM: POST DISCHARGE Please exercise your independent, professional judgment in responding to the clarification form. Clinical indicators are provided on the bottom of this form for your review. Thank you. Please check appropriate box(s) to clarify if the following diagnosis has been ruled in or ruled out: PNEUMONIA (CDI/Coding list diagnosis here) [ ] Ruled in diagnosis [ ] Continue to treat [ ] Resolved [ x ] Ruled out diagnosis [ ] Cannot rule out diagnosis [ ] Other diagnosis [ ] Unable to determine In addition, please specify: Present on Admission (POA): [ ] Yes [ ] No [ ] Unable to determine For continuity of documentation, please document condition throughout progress notes and discharge summary. Thank You. CLINICAL INDICATORS - SIGNS / SYMPTOMS / LABS Pneumonia documented on Progress Notes 10/13/17, 10/12/17, 10/11/17 CXR 10/06/17 - Cardiomegaly, Bilateral pulmonary densities which could e pulmonary edema, which would suggest congestive heart failure. Alternatively, this could represent bilateral infectious pneumonitis. RISK FACTORS S/P CABG - op note TREATMENTS Ceftriaxone 1gm IV (This form is maintained as a part of the permanent medical record) 2014 [employer], [employer]. All Rights Reserved Shawanda Anne, CCS, LINK TRAINER TEACHER, CASC MTDD
--- NOTE | 2017-10-17 13:44 | PQF ---
JESSICA ROSALESBRAXTON DUFF [id number] [facility] [id number] CLINICAL DOCUMENTATION CLARIFICATION FORM: POST DISCHARGE Please exercise your independent, professional judgment in responding to the clarification form. Clinical indicators are provided on the bottom of this form for your review Please check appropriate box(s): HEART FAILURE: A. TYPE: [ ] Systolic / HFrEF [ ] Diastolic / HFpEF [ ] Combined Systolic / Diastolic B. ACUITY [ ] Acute [ ] Acute on Chronic [ ] Chronic [ ] Other diagnosis [ x ] Unable to determine In addition, please specify: Present on Admission (POA): [x ] Yes [ ] No [ ] Unable to determine For continuity of documentation, please document condition throughout progress notes and discharge summary. Thank You. CLINICAL INDICATORS - SIGNS / SYMPTOMS / LABS Congestive Heart Failure exacerbation documented on H&P 10/06/17 LVEF is probably around 60-70% - Consult 10/07/17 Elevated BNP - 116.6 - Consult 10/07/17 RISKS: HTN, CKD, CAD - PN 10/13/17 TREATMENTS: CABG - op note 10/08/17 Carvedilol 12.5mg po - PN 10/13/17 Furosemide 40mg slow IVP - PN 10/13/17, 10/09/17 (This form is maintained as a part of the permanent medical record) [facility]urse[facility] [id number]. All Rights Reserved Shawanda Anne, CCS, GENERAL MANAGER ROAD PRODUCTION, CASC [email or web address]
--- NOTE | 2017-10-19 17:52 | EKG ---
Test Reason : S/P CABG Blood Pressure : / mmHG Vent. Rate : 044 BPM Atrial Rate : 044 BPM P-R Int : 144 ms QRS Dur : 094 ms QT Int : 512 ms P-R-T Axes : 040 080 029 degrees QTc Int : 437 ms Marked sinus bradycardia with occasional AV dual-paced complexes Low voltage QRS RSR' or QR pattern in V1 suggests right ventricular conduction delay Possible injury pattern V2 - V5 Abnormal ECG Vent. rate has decreased BY [address] Prema WAGGONER ([id number]) on 10/19/2017 5:51:51 PM Referred By: DANY Confirmed By:DR. Prema WAGGONER
== END 2017-10-14 11:25 | DRG 234 ==
LOC: ERS 19:30 → 2NO 21:21 → CCU 10-08 07:05 → 2NO 10-09 18:35
PROVIDERS: ADMIT Internal Medicine; ATTEND Internal Medicine
PROC: 02100Z9 Bypass Coronary Artery, One Artery from Left Internal Mammary, Open Approach (ICD-10-PCS; principal; 2017-10-07)
PROC: 4A023N7 Measurement of Cardiac Sampling and Pressure, Left Heart, Percutaneous Approach (ICD-10-PCS; 2017-10-07)
PROC: 06BQ4ZZ Excision of Left Saphenous Vein, Percutaneous Endoscopic Approach (ICD-10-PCS; 2017-10-07)
PROC: B2111ZZ Fluoroscopy of Multiple Coronary Arteries using Low Osmolar Contrast (ICD-10-PCS; 2017-10-07)
PROC: 0211093 Bypass Coronary Artery, Two Arteries from Coronary Artery with Autologous Venous Tissue, Open Approach (ICD-10-PCS; 2017-10-08)
PROC: 5A1221Z Performance of Cardiac Output, Continuous (ICD-10-PCS; 2017-10-08)
PROC: 30233N1 Transfusion of Nonautologous Red Blood Cells into Peripheral Vein, Percutaneous Approach (ICD-10-PCS; 2017-10-08)
DX: I25.110 Atherosclerotic heart disease of native coronary artery with unstable angina pectoris (principal); I47.2 Ventricular tachycardia; N17.9 Acute kidney failure, unspecified; I13.0 Hypertensive heart and chronic kidney disease with heart failure and stage 1 through stage 4 chronic kidney disease, or unspecified chronic kidney disease; N18.3 Chronic kidney disease, stage 3 (moderate); E11.22 Type 2 diabetes mellitus with diabetic chronic kidney disease; E11.51 Type 2 diabetes mellitus with diabetic peripheral angiopathy without gangrene; E78.5 Hyperlipidemia, unspecified; D64.9 Anemia, unspecified; J44.9 Chronic obstructive pulmonary disease, unspecified; I50.9 Heart failure, unspecified; I65.22 Occlusion and stenosis of left carotid artery; E66.9 Obesity, unspecified; E87.6 Hypokalemia; Z87.891 Personal history of nicotine dependence; Z79.899 Other long term (current) drug therapy; Z90.710 Acquired absence of both cervix and uterus
CPT/HCPCS: 36415; 36416; 36430; 71045; 71046; 80048; 80053; 81001; 81003; 81015; 82553; 82805; 83540; 83550; 83690; 83735; 83880; 84484; 85025; 85610; 85730; 86850; 86900; 86901; 93005; 93010; 93306; 93458; 93798; 93880; 94002; 94640; 96374; 99152; A4216; C1769; G8978-GP-CI; G8979-GP-CI; G8980-GP-CI; G8987-GO-CJ; G8988-GO-CJ; G8989-GO-CJ; J0360; J0696; J1642; J1644; J1815; J1940; J2001; J2150; J2250; J2405; J2440; J2704; J2720; J3010; J3475; J3480; J7050; J7620; P9016; P9045; P9047; S0017; S0028